=== PATIENT | male | born 2000 | race Hispanic/Latino ===

== ENCOUNTER 2018-02-09 12:15 | Emergency (ER) | payer BC, OTHER ==
[2018-02-09 14:07] LABS: Absolute Neutrophil 13.9 K/uL (1.8-8.0); Basophils % 0.1 % (0-1.3); Eosinophils % 0.1 % (0-4.4); Hematocrit 47.4 % (39.6-49.0); Lymphocytes % 6.2 % (15.3-44.8); MCH 27.1 pg (27.0-35.0); MCV 83.3 fL (80-100); MPV 8.1 fL (7.6-11.3); Monocytes % 6.2 % (3.3-12.3); RBC Red Blood Cell Count 5.69 M/uL (4.33-5.43)
[2018-02-09 14:23] LABS: Bicarbonate 31 mEq/L (21-31); Glucose Level 105 mg/dL (65-120); Potassium 3.9 mEq/L (3.6-5.0); Sodium Level 139 mEq/L (135-145)
[2018-02-09 14:25] LABS: Protime INR 0.92
[2018-02-09 14:29] LABS: ALT/SGPT 22 IU/L (10-60); AST/SGOT 25 IU/L (10-42); Albumin 5.1 g/dL (3.2-5.5); Alkaline Phosphatase 60 IU/L (42-121); BUN Blood Urea Nitrogen 10 mg/dL (6-20); Bilirubin Direct 0.2 mg/dL (0-0.2); Bilirubin Total 0.8 mg/dL (0.3-1.2); Protein, Total 7.8 g/dL (6.0-8.3)
[2018-02-09 14:31] LABS: Alcohol Serum/Plasma < 10 mg/dl; Salicylates Level < 4.0 mg/dl (<30)
[2018-02-09 15:05] LABS: Urine Blood NEGATIVE (NEG); Urine Glucose NEGATIVE (NEG); Urine Protein NEGATIVE (NEG); Urine pH 7.5 (5.0-7.0)
[2018-02-09 15:12] LABS: Barbiturates NEGATIVE; Benzodiazepines NEGATIVE; Cocaine NEGATIVE; METHAMPHETAM NEGATIVE; Opiates NEGATIVE; Phencyclidine NEGATIVE; THC Cannibis POSITIVE
[2018-02-09 15:13] LABS: Blood Morphology Comment NOT SEEN (NOT SEEN); Platelet Estimate ADEQ; Urine White Blood Cell Casts OK
[2018-02-09] MEDS ORDERED: ACETAMINOPHEN 500 MG TAB ONE (18:46)
--- NOTE | 2018-02-09 19:15 | EDPHYS ---
Physician Documentation [facility] Name: Kam Mcdnoald Age: 17 yrs Sex: Male : 2000 Arrival Date: 02/09/2018 Time: 12:22 Bed 25 Private MD: Nataliia Monahan ED Physician Santo Meza HPI: 02/09 19:09 This 17 yrs old Male presents to ER via Ambulatory with complaints of Suicidal gs Ideation. 19:09 The patient presents to the emergency department with depression, suicide ideation. gs Onset: The symptoms/episode began/occurred acutely, today. Past psychiatric history: Prior diagnosis: depression. Associated signs and symptoms: Pertinent positives; suicide ideation, Pertinent negatives: chest pain, delusions, hallucinations. Severity of symptoms: At their worst the symptoms were severe in the emergency department the symptoms are unchanged. The patient has experienced similar episodes in the past, a few times. Historical: - Allergies: 12:55 Keflex; hj - Home Meds: 12:55 None [Active]; hj - PMHx: 12:55 Depression; hj - PSHx: 12:55 Ear Tubes; hj - Immunization history:: Adult Immunizations up to date. - Social history:: Smoking status: Patient uses street drugs, marijuana. ROS: 19:09 All other systems are negative. gs Exam: 19:09 Head/Face: Normocephalic, atraumatic. Eyes: Pupils equal round and reactive to light, gs extra-ocular motions intact. Lids and lashes normal. Conjunctiva and sclera are non-icteric and not injected. Cornea within normal limits. Periorbital areas with no swelling, redness, or edema. ENT: Nares patent. No nasal discharge, no septal abnormalities noted. Tympanic membranes are normal and external auditory canals are clear. Oropharynx with no redness, swelling, or masses, exudates, or evidence of obstruction, uvula midline. Mucous membranes moist. Neck: Trachea midline, no thyromegaly or masses palpated, and no cervical lymphadenopathy. Supple, full range of motion without nuchal rigidity, or vertebral point tenderness. No Meningismus. Chest/axilla: Normal chest wall appearance and motion. Nontender with no deformity. No lesions are appreciated. Cardiovascular: Regular rate and rhythm with a normal S1 and S2. No gallops, murmurs, or rubs. Normal PMI, no JVD. No pulse deficits. Respiratory: Lungs have equal breath sounds bilaterally, clear to auscultation and percussion. No rales, rhonchi or wheezes noted. No increased work of breathing, no retractions or nasal flaring. Abdomen/GI: Soft, non-tender, with normal bowel sounds. No distension or tympany. No guarding or rebound. No evidence of tenderness throughout. Back: No spinal tenderness. No costovertebral tenderness. Full range of motion. Skin: Warm, dry with normal turgor. Normal color with no rashes, no lesions, and no evidence of cellulitis. MS/ Extremity: Pulses equal, no cyanosis. Neurovascular intact. Full, normal range of motion. Neuro: Awake and alert, GCS 15, oriented to person, place, time, and situation. Cranial nerves II-XII grossly intact. Motor strength 5/5 in all extremities. Sensory grossly intact. Cerebellar exam normal. Normal gait. 19:09 Constitutional: The patient appears alert, awake. 19:09 ECG was reviewed by the Attending Physician. 19:09 Psych: Behavior/mood is suicidal, depressed, Oriented to person, place, time, Patient having thoughts of suicide. Plan for suicide is gun or pills has a gun Judgement / Insight is impaired. Delusions/hallucinations are not present. Vital Signs: 12:55 BP 126 / 87; Pulse 70; Resp 18; Temp 99.4(TE); Pulse Ox 100% on R/A; Weight 63.5 kg; hj Height 5 ft. 6 in. (167.64 cm); Pain 0/10; 17:00 BP 127 / 76; Pulse 88; Resp 16; Pulse Ox 100% on R/A; aj1 22:02 BP 131 / 80; Pulse 74; Resp 16; Pulse Ox 99% on R/A; aj1 02/10 00:36 BP 117 / 84; Pulse 69; Resp 16; Pulse Ox 100% ; tl3 01:56 BP 131 / 83; Pulse 78; Resp 18 S; Temp 98.9(O); Pulse Ox 99% ; bb 02/09 12:55 Body Mass Index 22.60 (63.50 kg, 167.64 cm) hj MDM: 02/09 13:37 Patient medically screened. gs 19:09 Differential diagnosis: acute psychotic break, depression, psychosis secondary to gs non-compliance. Data reviewed: vital signs, nurses notes. Response to treatment: There is no appreciated change of the patient's symptoms at this time, and as a result, I will have psych eval and transfer. 02/10 01:25 ED course: I had a long discussion with patient and mother. Patient when he first jr8 arrived stated that he was very upset and been having a very bad time. Admitted to being suicidal but never gave plan. It was documented that patient wanted to cut himself. Patient stated that he use to cut to relieve pain but no longer does that. Does not actually want to stab himself to kill himself. Family has good f/u with his already established psychologist. Is going to still see [facility] as well to be put on medications. Both mother and father are taking off tomorrow to continue to be with him and to set appointments up for him. Patient has plan to always call his mom and dad just as he did today if he started to feel bad. I feel that at this time patient has a good support system. Will be staying with mom and dad for the future. And has proper already established f/u. Will discharge home to f/u. Both patient and family know to immediately come back if he is worse . 02/09 13:38 Order name: Acetaminophen; Complete Time: 18: 02/09 13:38 Order name: Basic Metabolic Panel; Complete Time: 18: 02/09 13:38 Order name: CBC with Diff; Complete Time: 18: 02/09 13:38 Order name: ETOH Level; Complete Time: 18: 02/09 13:38 Order name: Hepatic Function; Complete Time: 18: 02/09 13:38 Order name: PT-INR; Complete Time: 18: 02/09 13:38 Order name: Salicylate; Complete Time: 18: 02/09 13:38 Order name: Urine Drug Screen; Complete Time: 18: 02/09 14:16 Order name: CBC Smear Scan; Complete Time: 18:06 EDMS 02/09 14:17 Order name: Urine Dipstick--Ancillary (enter results); Complete Time: 18:06 ag 02/09 22:30 Order name: CBC with Diff rg2 02/09 22:30 Order name: CBC with Automated Diff; Complete Time: 00:02 EDOH 02/09 13:38 Order name: EKG; Complete Time: 13:39 02/09 13:38 Order name: EKG - Nurse/Tech; Complete Time: 14:53 02/09 13:38 Order name: IV Saline Lock; Complete Time: 14:01 02/09 13:38 Order name: Labs collected and sent; Complete Time: 14:01 02/09 13:38 Order name: Urine Dipstick-Ancillary (obtain specimen); Complete Time: 14:01 EC/08 19:09 Rate is 69 beats/min. Rhythm is regular. MN interval is normal. QRS interval is normal. gs T waves are Normal. No ST changes noted. Clinical impression: Normal ECG. Interpreted by me. Administered Medications: 18:49 Drug: Tylenol 1000 mg Route: PO; aj1 20:47 Follow up: Response: No adverse reaction aj1 21:26 Drug: NS 0.9% 1000 ml Route: IV; Rate: 1 bolus; Site: right antecubital; aj1 22:35 Follow up: IV Status: Completed infusion; IV Intake: 1000ml tl3 22:36 Drug: Zofran 4 mg Route: IVP; Infused Over: 2 mins; Site: right antecubital; tl3 02/10 00:37 Follow up: Response: No adverse reaction; Nausea is decreased tl3 Disposition: 02/10/18 01:33 Discharged to Home. Impression: Major depressive disorder, recurrent, Suicidal ideations. - Condition is Stable. - Discharge Instructions: Depression, Adult, Helping Someone Who is Suicidal. - Medication Reconciliation Form, Thank You Letter, Antibiotic Education, Prescription Opioid Use form. - Follow up: Private Physician; When: Tomorrow; Reason: Recheck today's complaints, Continuance of care, Re-evaluation by your physician. - Problem is new. - Symptoms have improved. Addendum: 02/25/2018 21:53 Co-signature as Attending Physician, Santo Meza MD. g s Signatures: Dispatcher [facility] Usha Washington RN RN aj1 Monique Marquez RN RN bb Barrett Bird PA PA jr8 Rg Mahoney RN RN Meza, Santo, Jennifer Alamo MD, RN RN tl3 Corrections: (The following items were deleted from the chart) 02/10 01:32 02/09 19:14 02/09/2018 19:14 Transfer ordered to Psych Facility. Diagnosis is Suicidal jr8 ideations. Reason for transfer: Higher level of care. Accepting physician is tbd. Condition is Stable. Problem is new. Symptoms are unchanged. 02/10 01:59 01:33 02/10/2018 01:33 Discharged to Home. Impression: Major depressive disorder, bb recurrent; Suicidal ideations. Condition is Stable. Forms are Medication Reconciliation Form, Thank You Letter, Antibiotic Education, Prescription Opioid Use. Follow up: Private Physician; When: Tomorrow; Reason: Recheck today's complaints, Continuance of care, Re-evaluation by your physician. Problem is new. Symptoms have improved. jr8
--- NOTE | 2018-02-09 19:15 | ER ---
Nurse's Notes [facility] Name: Kam Mcdonald Age: 17 yrs Sex: Male : 2000 Arrival Date: 02/09/2018 Time: 12:22 Bed 25 Private MD: Nataliia Monahan Diagnosis: Major depressive disorder, recurrent;Suicidal ideations Presentation: 02/09 12:52 Presenting complaint: Patient states: "i wanted to kill myself for days now" i wan to cut my self with a knife; hx of depression; reports using marijuana;. Transition of care: patient was not received from another setting of care. Onset of symptoms was February 09, 2018. Initial Sepsis Screen: Does the patient meet any 2 criteria? No. Patient's initial sepsis screen is negative. Does the patient have a suspected source of infection? No. Patient's initial sepsis screen is negative. Care prior to arrival: None. 12:52 Method Of Arrival: Ambulatory 12:52 Acuity: ERNESTINA 2 hj Triage Assessment: 12:55 General: Appears in no apparent distress. uncomfortable, Behavior is calm, cooperative, hj appropriate for age. Pain: Denies pain. Historical: - Allergies: 12:55 Keflex; hj - Home Meds: 12:55 None [Active]; hj - PMHx: 12:55 Depression; hj - PSHx: 12:55 Ear Tubes; hj - Immunization history:: Adult Immunizations up to date. - Social history:: Smoking status: Patient uses street drugs, marijuana. Screenin:27 Abuse screen: Denies threats or abuse. Denies injuries from another. Nutritional aj1 screening: No deficits noted. Tuberculosis screening: No symptoms or risk factors identified. 22:38 Fall Risk None identified. tl3 Assessment: 13:27 General: Appears in no apparent distress. comfortable, Behavior is cooperative, flat. aj1 Pain: Denies pain. Neuro: Level of Consciousness is awake, alert, obeys commands. Cardiovascular: Patient's skin is warm and dry. Respiratory: Airway is patent Respiratory effort is even, unlabored, Respiratory pattern is regular, symmetrical. GI: No signs and/or symptoms were reported involving the gastrointestinal system. : No signs and/or symptoms were reported regarding the genitourinary system. EENT: No signs and/or symptoms were reported regarding the EENT system. Derm: No signs and/or symptoms reported regarding the dermatologic system. Skin is pink, warm \\T\\ dry. normal. Musculoskeletal: No signs and/or symptoms reported regarding the musculoskeletal system. Circulation, motion, and sensation intact. 14:30 Reassessment: Patient appears in no apparent distress at this time. No changes from [facility] previously documented assessment. Patient and/or family updated on plan of care and expected duration. Pain level reassessed. Patient is alert, oriented x 3, equal unlabored respirations, skin warm/dry/pink. 15:20 Reassessment: [facility] notified of need for patient screening. 16:05 Reassessment: Patient appears in no apparent distress at this time. No changes from 1 previously documented assessment. Patient and/or family updated on plan of care and expected duration. Pain level reassessed. Patient is alert, oriented x 3, equal unlabored respirations, skin warm/dry/pink. 17:05 Reassessment: Patient appears in no apparent distress at this time. No changes from aj1 previously documented assessment. Patient and/or family updated on plan of care and expected duration. Pain level reassessed. Patient is alert, oriented x 3, equal unlabored respirations, skin warm/dry/pink. 18:00 Reassessment: Patient appears in no apparent distress at this time. No changes from aj1 previously documented assessment. Patient and/or family updated on plan of care and expected duration. Pain level reassessed. Patient is alert, oriented x 3, equal unlabored respirations, skin warm/dry/pink. 18:45 Reassessment: Patient states that he has a headache from how much he has cried today. [facility] Notified Dr. Meza, order received. 19:10 Reassessment: Patient appears in no apparent distress at this time. No changes from 1 previously documented assessment. Patient and/or family updated on plan of care and expected duration. Pain level reassessed. Patient is alert, oriented x 3, equal unlabored respirations, skin warm/dry/pink. 20:15 Reassessment: Patient appears in no apparent distress at this time. No changes from 1 previously documented assessment. Patient and/or family updated on plan of care and expected duration. Pain level reassessed. Patient is alert, oriented x 3, equal unlabored respirations, skin warm/dry/pink. 20:46 Reassessment: Patient states that his headache has improved since administration of aj1 Tylenol. 21:47 Reassessment: Patient appears in no apparent distress at this time. No changes from aj1 previously documented assessment. Patient and/or family updated on plan of care and expected duration. Pain level reassessed. Patient is alert, oriented x 3, equal unlabored respirations, skin warm/dry/pink. 22:38 Reassessment: Patient appears in no apparent distress at this time. Patient and/or tl3 family updated on plan of care and expected duration. Pain level reassessed. Patient is alert, oriented x 3, equal unlabored respirations, skin warm/dry/pink. pt trying to sleep, c/o nausea informed zofran administered, 23 g butterfly used to obtain blood for repeat CBC. 02/10 00:26 Reassessment: No changes from previously documented assessment. Patient and/or family tl3 updated on plan of care and expected duration. Pain level reassessed. Patient is alert, oriented x 3, equal unlabored respirations, skin warm/dry/pink. pt wants to go home, states that [facility] told him it was his decision to go to inpatient or do follow up outpatient care. Barrett notified, [facility] called for verification, awaiting response. Pt updated on status. 01:04 Reassessment: pt report given to TYSON Barron at [facility], Barrett at [facility] bedside discussing POC with pt and family. 01:55 Reassessment: Patient is alert, oriented x 3, equal unlabored respirations, skin bb warm/dry/pink. pt verbalized understanding of and agrees to plan of care discharge instructions given pt ambulated with steady gait to exit accompanied by family. Patient states feeling better. Psych: 02/09 13:09 Subjective: Patient's mood is sad, Delusions are denied, Hallucinations are denied aj Having thoughts of suicide. Plan for suicide is cutting self with knives. Objective: Patient is cooperative, using poor eye contact, Speech is normal, Affect is flat. Interventions: Removed personal items and placed in bag. Patient placed in hospital gown. Suicide Risk Assessment: Sad Person Scale: Sex of patient: Male: Score 1 point. Age of patient: Score 1 point if patient 15-34. Depression: Score 1 point if signs of depression are present. Previous Attempt: Score 0 point if patient has not previously attempted suicide. Substance Abuse: Score 1 point if patient abuses alcohol or drugs. Rational Thinking: Score 0 point if patient has rational thinking. Social Support: Score 0 if social support is present/available. Organized Plan: Score 1 point if patient had a plan in place. Relationship: Score 1 point if patient is , , , or for a single male Chronic Sickness: Score 0 point if patient does not have a chronic illness, debilitating, or severe disorder. TOTAL POINTS: If total points are 3-4, proposed clinical action is close follow-up/consider hospitalization. Safety Checks: Personal items have been removed. Door is open. Visitors are present. Patient uses marijuana. 02/10 01:57 Commitment: pt discharged accompanied by family. bb Vital Signs: 02/09 12:55 BP 126 / 87; Pulse 70; Resp 18; Temp 99.4(TE); Pulse Ox 100% on R/A; Weight 63.5 kg; Height 5 ft. 6 in. (167.64 cm); Pain 0/10; 17:00 BP 127 / 76; Pulse 88; Resp 16; Pulse Ox 100% on R/A; aj1 22:02 BP 131 / 80; Pulse 74; Resp 16; Pulse Ox 99% on R/A; aj1 02/10 00:36 BP 117 / 84; Pulse 69; Resp 16; Pulse Ox 100% ; tl3 01:56 BP 131 / 83; Pulse 78; Resp 18 S; Temp 98.9(O); Pulse Ox 99% ; bb 02/09 12:55 Body Mass Index 22.60 (63.50 kg, 167.64 cm) ED Course: 02/09 12:22 Patient arrived in ED. mr 12:22 Nataliia Monahan MD is Private Physician. mr 12:54 Triage completed. hj 12:55 Arm band placed on right wrist. 12:58 Santo Meza MD is Attending Physician. 12:59 Usha Washington RN is Primary Nurse. aj1 13:00 Safety Checks: Personal items have been removed The door is open or patient has been aj1 placed in a hallway bed/chair. A family member and/or friend is present and encouraged to stay. 13:15 Safety Checks: Personal items have been removed The door is open or patient has been aj1 placed in a hallway bed/chair. A family member and/or friend is present and encouraged to stay. 13:27 Patient has correct armband on for positive identification. Bed in low position. Call aj1 light in reach. Side rails up X 1. 13:27 No provider procedures requiring assistance completed. aj1 13:30 Safety Checks: Personal items have been removed The door is open or patient has been aj1 placed in a hallway bed/chair. A family member and/or friend is present and encouraged to stay. 13:45 Safety Checks: Personal items have been removed The door is open or patient has been aj1 placed in a hallway bed/chair. A family member and/or friend is present and encouraged to stay. 13:59 Inserted saline lock: 20 gauge in right antecubital area, using aseptic technique. aj1 14:00 Safety Checks: Personal items have been removed The door is open or patient has been aj1 placed in a hallway bed/chair. A family member and/or friend is present and encouraged to stay. 14:00 Initial lab(s) drawn, by ED staff, sent to lab. aj1 14:15 Safety Checks: Personal items have been removed The door is open or patient has been aj1 placed in a hallway bed/chair. A family member and/or friend is present and encouraged to stay. 14:30 Safety Checks: Personal items have been removed The door is open or patient has been aj1 placed in a hallway bed/chair. A family member and/or friend is present and encouraged to stay. 14:45 Safety Checks: Personal items have been removed The door is open or patient has been aj1 placed in a hallway bed/chair. A family member and/or friend is present and encouraged to stay. 15:00 Safety Checks: Personal items have been removed The door is open or patient has been aj1 placed in a hallway bed/chair. A family member and/or friend is present and encouraged to stay. 15:15 Safety Checks: Personal items have been removed The door is open or patient has been aj1 placed in a hallway bed/chair. A family member and/or friend is present and encouraged to stay. 15:30 Safety Checks: Personal items have been removed The door is open or patient has been aj1 placed in a hallway bed/chair. A family member and/or friend is present and encouraged to stay. 15:45 Safety Checks: Personal items have been removed The door is open or patient has been aj1 placed in a hallway bed/chair. A family member and/or friend is present and encouraged to stay. 16:00 Safety Checks: Personal items have been removed The door is open or patient has been aj1 placed in a hallway bed/chair. A family member and/or friend is present and encouraged to stay. 16:15 Safety Checks: Personal items have been removed The door is open or patient has been aj1 placed in a hallway bed/chair. A family member and/or friend is present and encouraged to stay. 16:30 Safety Checks: Personal items have been removed The door is open or patient has been aj1 placed in a hallway bed/chair. A family member and/or friend is present and encouraged to stay. 16:45 Safety Checks: Personal items have been removed The door is open or patient has been aj1 placed in a hallway bed/chair. A family member and/or friend is present and encouraged to stay. 17:00 Safety Checks: Personal items have been removed The door is open or patient has been aj1 placed in a hallway bed/chair. A family member and/or friend is present and encouraged to stay. 17:15 Safety Checks: Personal items have been removed The door is open or patient has been aj1 placed in a hallway bed/chair. A family member and/or friend is present and encouraged to stay. 17:30 Safety Checks: Personal items have been removed The door is open or patient has been aj1 placed in a hallway bed/chair. A family member and/or friend is present and encouraged to stay. 17:45 Safety Checks: Personal items have been removed The door is open or patient has been aj1 placed in a hallway bed/chair. A family member and/or friend is present and encouraged to stay. 18:00 Safety Checks: Personal items have been removed The door is open or patient has been aj1 placed in a hallway bed/chair. A family member and/or friend is present and encouraged to stay. 18:15 Safety Checks: Personal items have been removed The door is open or patient has been aj1 placed in a hallway bed/chair. A family member and/or friend is present and encouraged to stay. 18:30 Safety Checks: Personal items have been removed The door is open or patient has been aj1 placed in a hallway bed/chair. A family member and/or friend is present and encouraged to stay. 18:45 Safety Checks: Personal items have been removed The door is open or patient has been aj1 placed in a hallway bed/chair. A family member and/or friend is present and encouraged to stay. 19:00 Safety Checks: Personal items have been removed The door is open or patient has been aj1 placed in a hallway bed/chair. A family member and/or friend is present and encouraged to stay. 19:15 Safety Checks: Personal items have been removed The door is open or patient has been aj1 placed in a hallway bed/chair. A family member and/or friend is present and encouraged to stay. 19:30 Safety Checks: Personal items have been removed The door is open or patient has been aj1 placed in a hallway bed/chair. A family member and/or friend is present and encouraged to stay. 19:45 Safety Checks: Personal items have been removed The door is open or patient has been aj1 placed in a hallway bed/chair. A family member and/or friend is present and encouraged to stay. 20:00 Safety Checks: Personal items have been removed The door is open or patient has been aj1 placed in a hallway bed/chair. A family member and/or friend is present and encouraged to stay. 20:15 Safety Checks: Personal items have been removed The door is open or patient has been aj1 placed in a hallway bed/chair. A family member and/or friend is present and encouraged to stay. 20:30 Safety Checks: Personal items have been removed The door is open or patient has been aj1 placed in a hallway bed/chair. A family member and/or friend is present and encouraged to stay. 20:45 Safety Checks: Personal items have been removed The door is open or patient has been aj1 placed in a hallway bed/chair. A family member and/or friend is present and encouraged to stay. 21:00 Safety Checks: Personal items have been removed The door is open or patient has been aj1 placed in a hallway bed/chair. A family member and/or friend is present and encouraged to stay. 21:15 Safety Checks: Personal items have been removed The door is open or patient has been aj1 placed in a hallway bed/chair. A family member and/or friend is present and encouraged to stay. 21:30 Safety Checks: Personal items have been removed The door is open or patient has been aj1 placed in a hallway bed/chair. A family member and/or friend is present and encouraged to stay. 21:45 Safety Checks: Personal items have been removed The door is open or patient has been aj1 placed in a hallway bed/chair. A family member and/or friend is present and encouraged to stay. 22:00 Safety Checks: Personal items have been removed The door is open or patient has been aj1 placed in a hallway bed/chair. A family member and/or friend is present and encouraged to stay. 22:15 Safety Checks: Personal items have been removed The door is open or patient has been tl3 placed in a hallway bed/chair. A family member and/or friend is present and encouraged to stay. 22:30 Safety Checks: Personal items have been removed The door is open or patient has been tl3 placed in a hallway bed/chair. A family member and/or friend is present and encouraged to stay. 22:45 Safety Checks: Personal items have been removed The door is open or patient has been tl3 placed in a hallway bed/chair. A family member and/or friend is present and encouraged to stay. 23:00 Safety Checks: Personal items have been removed The door is open or patient has been tl3 placed in a hallway bed/chair. A family member and/or friend is present and encouraged to stay. 23:00 Safety checks: Items removed: yes. Door open/sign placed on door: yes. Family/friend aa8 present: yes. 23:15 Safety Checks: Personal items have been removed The door is open or patient has been tl3 placed in a hallway bed/chair. A family member and/or friend is present and encouraged to stay mom at bedside. 23:15 Safety checks: Items removed: yes. Door open/sign placed on door: yes. Family/friend aa8 present: yes. 23:30 Safety Checks: Personal items have been removed The door is open or patient has been tl3 placed in a hallway bed/chair. A family member and/or friend is present and encouraged to stay. 23:30 Safety checks: Items removed: yes. Door open/sign placed on door: yes. Family/friend aa8 present: yes. 23:45 Safety Checks: Personal items have been removed The door is open or patient has been tl3 placed in a hallway bed/chair. A family member and/or friend is present and encouraged to stay. 23:45 Safety checks: Items removed: yes. Door open/sign placed on door: yes. Family/friend aa8 present: yes. 23:45 Safety checks: Items removed: yes. Door open/sign placed on door: yes. Family/friend aa8 present: Other: NURSE WAS IN THE TALKING TO PT,WHEN PT ASK FOR DISCHARGE. 02/10 00:00 Safety Checks: Personal items have been removed The door is open or patient has been tl3 placed in a hallway bed/chair. A family member and/or friend is present and encouraged to stay. 00:00 Safety checks: Items removed: Door open/sign placed on door: yes. Family/friend aa8 present: yes. 00:15 Safety Checks: Personal items have been removed The door is open or patient has been tl3 placed in a hallway bed/chair. A family member and/or friend is present and encouraged to stay. 00:15 Safety checks: Items removed: yes. Door open/sign placed on door: yes. Family/friend aa8 present: yes. 00:30 Safety Checks: Personal items have been removed The door is open or patient has been tl3 placed in a hallway bed/chair. A family member and/or friend is present and encouraged to stay. 00:30 Safety checks: Items removed: yes. Door open/sign placed on door: no. Family/friend aa8 present: yes. 00:38 CBC with Diff Sent. tl3 00:45 Safety checks: Items removed: yes. Door open/sign placed on door: yes. Family/friend aa8 present: yes. 01:00 Safety checks: Items removed: yes. Door open/sign placed on door: yes. Family/friend aa8 present: yes. 01:15 Safety checks: Items removed: yes. Door open/sign placed on door: yes. Family/friend aa8 present:. 01:25 Barrett Bird PA is PHCP. jr8 01:30 Safety checks: Items removed: yes. Door open/sign placed on door: yes. Family/friend aa8 present: yes. 01:45 Safety checks: Items removed: yes. Door open/sign placed on door: yes. Family/friend aa8 present: no. 01:58 pt was D/Cd earlier, pressure bandage in place, clean and dry. bb Administered Medications: 02/09 18:49 Drug: Tylenol 1000 mg Route: PO; aj1 20:47 Follow up: Response: No adverse reaction aj1 21:26 Drug: NS 0.9% 1000 ml Route: IV; Rate: 1 bolus; Site: right antecubital; aj1 22:35 Follow up: IV Status: Completed infusion; IV Intake: 1000ml tl3 22:36 Drug: Zofran 4 mg Route: IVP; Infused Over: 2 mins; Site: right antecubital; tl3 02/10 00:37 Follow up: Response: No adverse reaction; Nausea is decreased tl3 Intake: 02/09 22:35 IV: 1000ml; Total: 1000ml. tl3 Outcome: 19:14 ER care complete, transfer ordered by . 02/10 01:33 Discharge ordered by . jeremiah 01:58 Discharged to home ambulatory, with family. bb 01:58 Condition: improved 01:58 Discharge instructions given to patient, family, Instructed on discharge instructions, follow up and referral plans. Demonstrated understanding of instructions, follow-up care. 01:59 Patient left the ED. bb Signatures: Usha Washington, RN RN Gayle Cannon mr Monique Marquez RN RN bb Michelle Yoo RN TYSON Barrett Bird PA PA jr8 Rg Mahoney RN RN hj Adeola, Adeola aa8 Starr, Gregory, MD MD Jennifer Silva RN RN tl3 Corrections: (The following items were deleted from the chart) 02/09 12:57 12:55 Pulse 70bpm; Resp 18bpm; Pulse Ox 100% RA; Temp 99.4F Temporal; 63.5 kg; Height 5 hj ft. 6 in.; BMI: 22.6; Pain 0/10; hj 02/10 01:47 01:46 Safety checks: Items removed: yes. Door open/sign placed on door: yes. aa8 Family/friend present: yes. aa8 02:23 01:32 Safety checks: Items removed: yes. Door open/sign placed on door: yes. aaAntonette Family/friend present: yes. aa8 01:44 Safety checks: Items removed: yes. Door open/sign placed on door: yes. aa8 Family/friend present: aa8 02:11 Safety checks: Items removed: yes. Door open/sign placed on door: yes. aa8 Family/friend present: yes. aa8
[2018-02-09] MEDS ORDERED: NA CHLORIDE 0.9% 1,000 ML ONE (21:17)
[2018-02-09] MEDS ORDERED: ONDANSETRON 4 MG/2 ML VIAL ONE (22:27)
[2018-02-09 22:45] LABS: Absolute Lymphocytes (CBC) 1.7 K/uL (0.7-4.9); Absolute Monocytes 0.9 K/uL (0.1-1.3); Absolute Neutrophil 8.9 K/uL (1.8-8.0); Basophils % 0.4 % (0-1.3); Eosinophils % 0.4 % (0-4.4); Hematocrit 44.3 % (39.6-49.0); Lymphocytes % 14.9 % (15.3-44.8); MCH 27.2 pg (27.0-35.0); MCV 83.3 fL (80-100); MPV 8.2 fL (7.6-11.3); Monocytes % 7.6 % (3.3-12.3); RBC Red Blood Cell Count 5.31 M/uL (4.33-5.43)
[2018-02-10 02:10] VITALS: BP 131/83; TEMP 98.9; O2SAT 99
--- NOTE | 2018-02-10 06:58 | EKG ---
Test Date: 2018-02-09 Test Time: 14:40:37 [employer] Supervisor: HAI MEASUREMENT RESULTS: Intervals: Rate: 69 MI: 148 QRSD: 86 QT: 378 QTc: 405 [place]: P: 35 MI: 148 QRS: 88 T: 60 INTERPRETIVE STATEMENTS: Sinus rhythm with marked sinus arrhythmia Otherwise normal ECG Compared to ECG 03/29/2014 19:52:21 No significant changes Electronically Signed On 02-10-18 06:58:06 CDT by Martínez Yang
== END 2018-02-10 01:59 | disposition home or self-care (01) ==
LOC: ER 12:15
DX: F33.9 Major depressive disorder, recurrent, unspecified (principal); Z88.1 Allergy status to other antibiotic agents
CPT/HCPCS: 36415; 80048; 80076; 80307; 80320; 80329; 81003; 85025; 85610; 93005; 96361; 96374; 99284; J2405; J7030

== ENCOUNTER 2019-05-08 03:32 | Emergency (ER) | payer BC ==
[2019-05-08 04:24] LABS: Absolute Lymphocytes (CBC) 2.3 K/uL (0.7-4.9); Basophils % 0.4 % (0-1.3); Hematocrit 47.4 % (39.6-49.0); Lymphocytes % 43.5 % (15.3-44.8); MPV 8.1 fL (7.6-11.3); RBC Red Blood Cell Count 5.68 M/uL (4.33-5.43)
[2019-05-08 04:26] LABS: Protime INR 0.9
[2019-05-08 04:31] LABS: Barbiturates NEGATIVE (NEGATIVE); Benzodiazepines POSITIVE (NEGATIVE); Cocaine NEGATIVE (NEGATIVE); METHAMPHETAM NEGATIVE (NEGATIVE); Methadone NEGATIVE (NEGATIVE); Opiates NEGATIVE (NEGATIVE); Phencyclidine NEGATIVE (NEGATIVE); THC Cannibis NEGATIVE (NEGATIVE)
--- NOTE | 2019-05-08 04:47 | EDPHYS ---
Physician Documentation [facility] Name: Kam Mcdonald Age: 19 yrs Sex: Male : 2000 Arrival Date: 05/08/2019 Time: 03:35 Bed 7 Private MD: ED Physician Kosta Fierro HPI: 05/08 04:43 This 19 yrs old Male presents to ER via Ambulatory with complaints of Suicidal donald Ideation. 04:43 The patient presents to the emergency department with anxiety, depression, suicide donald ideation. Onset: The symptoms/episode began/occurred gradually, today. Past psychiatric history: Prior diagnosis: depression. Associated signs and symptoms: Pertinent positives; anxiety, depression, suicide ideation. Severity of symptoms: At their worst the symptoms were moderate in the emergency department the symptoms are worse markedly. The patient has experienced similar episodes in the past, multiple times. Historical: - Allergies: 04:07 Keflex; lp1 - Home Meds: 04:07 Trintellix oral oral [Active]; lp1 - PMHx: 04:07 Anxiety; Depression; lp1 - PSHx: 04:07 foot surgery; Ear Tubes; lp1 - Immunization history:: Adult Immunizations up to date. - Social history:: Smoking status: Patient/guardian denies using tobacco. - Ebola Screening: : No symptoms or risks identified at this time. - Family history:: not pertinent. ROS: 04:43 Constitutional: Negative for fever, chills, and weight loss, Eyes: Negative for injury, donald pain, redness, and discharge, ENT: Negative for injury, pain, and discharge, Neck: Negative for injury, pain, and swelling, Cardiovascular: Negative for chest pain, palpitations, and edema, Respiratory: Negative for shortness of breath, cough, wheezing, and pleuritic chest pain, Abdomen/GI: Negative for abdominal pain, nausea, vomiting, diarrhea, and constipation, Back: Negative for injury and pain, : Negative for injury, bleeding, discharge, and swelling, MS/Extremity: Negative for injury and deformity, Skin: Negative for injury, rash, and discoloration, Neuro: Negative for headache, weakness, numbness, tingling, and seizure, Psych: Negative for depression, anxiety, suicide ideation, homicidal ideation, and hallucinations, Allergy/Immunology: Negative for hives, rash, and allergies, Hematologic/Lymphatic: Negative for swollen nodes, abnormal bleeding, and unusual bruising. Exam: 04:43 Constitutional: This is a well developed, well nourished patient who is awake, alert, donald and in no acute distress. Head/Face: Normocephalic, atraumatic. Eyes: Pupils equal round and reactive to light, extra-ocular motions intact. Lids and lashes normal. Conjunctiva and sclera are non-icteric and not injected. Cornea within normal limits. Periorbital areas with no swelling, redness, or edema. ENT: Nares patent. No nasal discharge, no septal abnormalities noted. Tympanic membranes are normal and external auditory canals are clear. Oropharynx with no redness, swelling, or masses, exudates, or evidence of obstruction, uvula midline. Mucous membranes moist. Neck: Trachea midline, no thyromegaly or masses palpated, and no cervical lymphadenopathy. Supple, full range of motion without nuchal rigidity, or vertebral point tenderness. No Meningismus. Chest/axilla: Normal chest wall appearance and motion. Nontender with no deformity. No lesions are appreciated. Cardiovascular: Regular rate and rhythm with a normal S1 and S2. No gallops, murmurs, or rubs. Normal PMI, no JVD. No pulse deficits. Respiratory: Lungs have equal breath sounds bilaterally, clear to auscultation and percussion. No rales, rhonchi or wheezes noted. No increased work of breathing, no retractions or nasal flaring. Abdomen/GI: Soft, non-tender, with normal bowel sounds. No distension or tympany. No guarding or rebound. No evidence of tenderness throughout. Back: No spinal tenderness. No costovertebral tenderness. Full range of motion. Male : Normal genitalia with no discharge or lesions. Skin: Warm, dry with normal turgor. Normal color with no rashes, no lesions, and no evidence of cellulitis. MS/ Extremity: Pulses equal, no cyanosis. Neurovascular intact. Full, normal range of motion. Neuro: Awake and alert, GCS 15, oriented to person, place, time, and situation. Cranial nerves II-XII grossly intact. Motor strength 5/5 in all extremities. Sensory grossly intact. Cerebellar exam normal. Normal gait. 04:43 Psych: Behavior/mood is pleasant, cooperative, Affect is calm, Oriented to person, place, time, Patient has no thoughts/intents to harm self or others. Judgement / Insight is normal. Memory is normal. Delusions/hallucinations are not present. Vital Signs: 04:05 BP 143 / 104; Pulse 112; Resp 16; Temp 98.5(O); Pulse Ox 97% on R/A; Weight 63.5 kg; lp1 Height 5 ft. 6 in. (167.64 cm); Pain 0/10; 05:00 BP 133 / 100; lp1 06:31 BP 131 / 87; Pulse 87; Resp 16; Pulse Ox 97% on R/A; lp1 10:29 BP 128 / 83; Pulse 78; Resp 16; Pulse Ox 98% on R/A; dh3 14:12 BP 132 / 96; Pulse 82; Resp 18; Pulse Ox 98% on R/A; dh3 04:05 Body Mass Index 22.60 (63.50 kg, 167.64 cm) lp1 MDM: 03:58 Patient medically screened. [facility] 08:30 Data reviewed: Pt admits to planning to hanging himself from the rafters last pm. snw States he feels better this am but is fearful he will hurt himself if he goes home. Willing to be transferred to psych facility for help.. 13:19 Physician consultation: Dr Cantor was called at 13:20, was contacted at 13:20, snw regarding regarding transfer, to a psychiatric hospital. 05/08 03:56 Order name: Acetaminophen; Complete Time: 05:28 05/08 03:56 Order name: Basic Metabolic Panel; Complete Time: 05:28 05/08 03:56 Order name: CBC with Diff; Complete Time: 04:43 05/08 03:56 Order name: ETOH Level; Complete Time: 05:28 05/08 03:56 Order name: Hepatic Function; Complete Time: 05:28 05/08 03:56 Order name: PT-INR; Complete Time: 04:43 05/08 03:56 Order name: Ptt, Activated; Complete Time: 04:43 05/08 03:56 Order name: Salicylate; Complete Time: 05:28 05/08 03:56 Order name: Urine Drug Screen; Complete Time: 04: 05/08 03:56 Order name: EKG; Complete Time: 03:57 05/08 04:22 Order name: Urine Dipstick--Ancillary (enter results); Complete Time: 05:28 ag4 05/08 07:08 Order name: Diet Regular; Complete Time: 07:09 dh3 05/08 03:56 Order name: EKG - Nurse/Tech; Complete Time: 04:07 05/08 03:56 Order name: IV Saline Lock; Complete Time: 04:07 05/08 03:56 Order name: Labs collected and sent; Complete Time: 04:07 05/08 03:56 Order name: Urine Dipstick-Ancillary (obtain specimen); Complete Time: 04:10 Administered Medications: 05:26 Drug: Tylenol 650 mg Route: PO; lp1 07:13 Follow up: Response: Pain is decreased bp 05:26 Drug: Motrin 600 mg Route: PO; lp1 07:13 Follow up: Response: Pain is decreased bp Disposition: 05/09 09:25 Co-signature as Attending Physician, Kosta Fierro MD I agree with the assessment and [facility] plan of care. Disposition: 05/08/19 04:46 Transfer ordered to Psych Facility. Diagnosis are Suicidal ideations, Major depressive disorder, recurrent. - Reason for transfer: Higher level of care. - Accepting physician is to psych. - Condition is Fair. - Problem is new. - Symptoms have improved. Signatures: Dispatcher [employer] Kosta Casillas MD MD cha Therrien, Shelly, BISCUIT PACKER-C BISCUIT PACKER-Csnw Rosario Tolentino RN RN Aranza Bolivar RN RN [facility] James Qureshi, RN RN bp Corrections: (The following items were deleted from the chart) 05/08 13:21 04:46 05/08/2019 04:46 Transfer ordered to [facility]. Diagnosis is snw Suicidal ideations; Major depressive disorder, recurrent. Reason for transfer: Higher level of care. Accepting physician is to psych. Condition is Fair. Problem is new. Symptoms have improved. [facility] 14:21 13:21 05/08/2019 04:46 Transfer ordered to Psych Facility. Diagnosis is Suicidal bp ideations; Major depressive disorder, recurrent. Reason for transfer: Higher level of care. Accepting physician is to psych. Condition is Fair. Problem is new. Symptoms have improved. snw
--- NOTE | 2019-05-08 04:47 | ER ---
Nurse's Notes [facility] Name: Kam Mcdonald Age: 19 yrs Sex: Male : 2000 Arrival Date: 05/08/2019 Time: 03:35 Bed 7 Private MD: Diagnosis: Suicidal ideations;Major depressive disorder, recurrent Presentation: 05/08 04:01 Presenting complaint: Patient states: "I just want to get some help cause I've tried lp1 doing it on my own and it's not working. I don't want to kill myself, but I don't want to get to that point."; Patient denies HI at this time. States recent stressors of moving back here from [place] away from mother and girlfriend breaking up with him; Recently began taking Trintellix about 1 week ago for hx of depression. Transition of care: patient was not received from another setting of care. Onset of symptoms was May 08, 2019. Risk Assessment: Do you want to hurt yourself or someone else? Patient reports no desire to harm self or others. Initial Sepsis Screen: Does the patient meet any 2 criteria? No. Patient's initial sepsis screen is negative. Does the patient have a suspected source of infection? No. Patient's initial sepsis screen is negative. Care prior to arrival: None. 04:01 Method Of Arrival: Ambulatory lp1 04:01 Acuity: ERNESTINA 2 lp1 Historical: - Allergies: 04:07 Keflex; lp1 - Home Meds: 04:07 Trintellix oral oral [Active]; lp1 - PMHx: 04:07 Anxiety; Depression; lp1 - PSHx: 04:07 foot surgery; Ear Tubes; lp1 - Immunization history:: Adult Immunizations up to date. - Social history:: Smoking status: Patient/guardian denies using tobacco. - Ebola Screening: : No symptoms or risks identified at this time. - Family history:: not pertinent. Screenin:17 Abuse screen: Denies threats or abuse. Denies injuries from another. Nutritional lp1 screening: No deficits noted. Tuberculosis screening: No symptoms or risk factors identified. Fall Risk None identified. Assessment: 04:16 General: Appears in no apparent distress. comfortable, Behavior is calm, cooperative. lp1 Pain: Denies pain. Neuro: Level of Consciousness is awake, alert, obeys commands, Oriented to person, place, time, situation, Gait is steady. Cardiovascular: Patient's skin is warm and dry. Respiratory: Respiratory effort is even, unlabored. GI: No signs and/or symptoms were reported involving the gastrointestinal system. : No signs and/or symptoms were reported regarding the genitourinary system. EENT: No signs and/or symptoms were reported regarding the EENT system. Derm: Skin is pink, warm \\T\\ dry. Musculoskeletal: Circulation, motion, and sensation intact. 05:20 Reassessment: Patient complaint of headache, provider notified. lp1 06:29 Reassessment: Patient appears in no apparent distress at this time. Patient is alert, lp1 oriented x 3, equal unlabored respirations, skin warm/dry/pink. General: Behavior is calm, cooperative. 07:00 Reassessment: RECD REPORT FROM LAWSON MEHTA. 19YO HM P/W SI AND PSYCH D/O. PSYCH TRANSFER bp IN PROCESS. SITTER AT B/S. 10:28 Reassessment: TRANSFER STILL PENDING COMMUNICATION WITH PSYCH FACILITIES. FAMILY AND bp SITTER AT B/S. 13:11 Reassessment: report given to Marsha at [facility]. iw 14:19 Reassessment: EMS AT B/S FOR TRANSPORT. PT JARROD. bp Psych: 04:00 Subjective: Patient's mood is sad, Delusions are denied, Hallucinations are denied lp1 Having thoughts of Patient denies SI at this time but states he "does not want to get to that point"; States he has thought of multiple plans including overdose, shooting self with gun. Objective: Patient is cooperative, Speech is normal, Affect is appropriate, Patient has mutilated themselves by Patient states "I just cut kind of all over my body"; patient showed areas of previous cutting to upper arms, chest, fingers. Interventions: Removed personal items and placed in bag. Patient placed in hospital gown. Searched person for dangerous items. Urine collected and sent for urine drug test. Belonging list filled out. Suicide Risk Assessment: Sad Person Scale: Sex of patient: Male: Score 1 point. Age of patient: Score 1 point if patient 15-34. Depression: Score 1 point if signs of depression are present. Previous Attempt: Score 0 point if patient has not previously attempted suicide. Substance Abuse: Score 0 point if patient does not abuse alcohol or drugs. Rational Thinking: Score 0 point if patient has rational thinking. Social Support: Score 0 if social support is present/available. Organized Plan: Score 1 point if patient had a plan in place. Relationship: Score 1 point if patient is , , , or for a single male Chronic Sickness: Score 0 point if patient does not have a chronic illness, debilitating, or severe disorder. TOTAL POINTS: If total points are 5-6, proposed clinical action is to strongly consider hospitalization, depending upon confidence in the follow-up arrangement. Implement suicide precautions. Safety Checks: Personal items have been removed. Door is open. Visitors are present. Pt denies substance abuse. 14:20 Commitment: Patient will be a voluntary commitment. bp Vital Signs: 04:05 BP 143 / 104; Pulse 112; Resp 16; Temp 98.5(O); Pulse Ox 97% on R/A; Weight 63.5 kg; lp1 Height 5 ft. 6 in. (167.64 cm); Pain 0/10; 05:00 BP 133 / 100; lp1 06:31 BP 131 / 87; Pulse 87; Resp 16; Pulse Ox 97% on R/A; lp1 10:29 BP 128 / 83; Pulse 78; Resp 16; Pulse Ox 98% on R/A; dh3 14:12 BP 132 / 96; Pulse 82; Resp 18; Pulse Ox 98% on R/A; dh3 04:05 Body Mass Index 22.60 (63.50 kg, 167.64 cm) lp1 ED Course: 03:35 Patient arrived in ED. ag3 03:57 Kosta Fierro MD is Attending Physician. donald 04:00 Inserted saline lock: 20 gauge in right hand, using aseptic technique. Blood collected. tl2 04:05 Triage completed. lp1 04:05 Arm band placed on left wrist. lp1 04:15 Safety checks: Items removed: yes. Door open/sign placed on door: yes. Family/friend ag4 present: yes. Sitter present: Yes. 04:17 Patient has correct armband on for positive identification. Sitter at bedside. lp1 04:30 Safety checks: Items removed: yes. Door open/sign placed on door: yes. Family/friend ag4 present: yes. Sitter present: Yes. 04:42 Lawson Bolivar TYSON is Primary Nurse. lp1 04:42 No provider procedures requiring assistance completed. lp1 04:45 Safety checks: Items removed: yes. Door open/sign placed on door: yes. Family/friend ag4 present: yes. Sitter present: Yes. 05:00 Safety checks: Items removed: yes. Door open/sign placed on door: yes. Family/friend ag4 present: yes. Sitter present: Yes. 05:15 Safety checks: Items removed: yes. Door open/sign placed on door: yes. Family/friend ar5 present: yes. Sitter present: Yes. 05:30 Safety checks: Items removed: yes. Door open/sign placed on door: yes. Family/friend ar5 present: yes. Sitter present: Yes. 05:45 Safety checks: Items removed: yes. Door open/sign placed on door: yes. Family/friend ar5 present: yes. Sitter present: Yes. 06:00 Safety checks: Items removed: yes. Door open/sign placed on door: yes. Family/friend ar5 present: yes. Sitter present: Yes. 06:15 Safety checks: Items removed: yes. Door open/sign placed on door: yes. Family/friend ar5 present: yes. Sitter present: Yes. 06:30 Safety checks: Items removed: yes. Door open/sign placed on door: yes. Family/friend ar5 present: yes. Sitter present: Yes. 06:45 Safety checks: Items removed: yes. Door open/sign placed on door: yes. Family/friend ar5 present: yes. Sitter present: Yes. 07:00 Safety checks: Items removed: yes. Door open/sign placed on door: yes. Family/friend dh3 present: yes. Family/friends encouraged to stay with patient. Sitter present: Yes. 07:15 Safety checks: Items removed: yes. Door open/sign placed on door: yes. Family/friend dh3 present: yes. Family/friends encouraged to stay with patient. Sitter present: Yes. 07:30 Safety checks: Items removed: yes. Door open/sign placed on door: yes. Family/friend dh3 present: yes. Family/friends encouraged to stay with patient. Sitter present: Yes. 07:45 Safety checks: Items removed: yes. Door open/sign placed on door: yes. Family/friend dh3 present: yes. Family/friends encouraged to stay with patient. Sitter present: Yes. 08:00 Safety checks: Items removed: yes. Door open/sign placed on door: yes. Family/friend dh3 present: yes. Family/friends encouraged to stay with patient. Sitter present: Yes. 08:08 Primary Nurse role handed off by Lawson Bolivar, TYSON bp 08:08 James Qureshi, RN is Primary Nurse. bp 08:15 Safety checks: Items removed: yes. Door open/sign placed on door: yes. Family/friend dh3 present: yes. Family/friends encouraged to stay with patient. Sitter present: Yes. 08:30 Safety checks: Items removed: yes. Door open/sign placed on door: yes. Family/friend dh3 present: yes. Family/friends encouraged to stay with patient. Sitter present: Yes. 08:33 Marija Layton FNP-C is [facility]. [facility] 08:45 Safety checks: Items removed: yes. Door open/sign placed on door: yes. Family/friend dh3 present: yes. Family/friends encouraged to stay with patient. Sitter present: Yes. 09:00 Safety checks: Items removed: yes. Door open/sign placed on door: yes. Family/friend dh3 present: yes. Family/friends encouraged to stay with patient. Sitter present: Yes. 09:15 Safety checks: Items removed: yes. Door open/sign placed on door: yes. Family/friend dh3 present: yes. Family/friends encouraged to stay with patient. Sitter present: Yes. 09:30 Safety checks: Items removed: yes. Door open/sign placed on door: yes. Family/friend dh3 present: yes. Family/friends encouraged to stay with patient. Sitter present: Yes. 09:45 Safety checks: Items removed: yes. Door open/sign placed on door: yes. Family/friend dh3 present: yes. Family/friends encouraged to stay with patient. Sitter present: Yes. 10:00 Safety checks: Items removed: yes. Door open/sign placed on door: yes. Family/friend dh3 present: yes. Family/friends encouraged to stay with patient. Sitter present: Yes. 10:15 Safety checks: Items removed: yes. Door open/sign placed on door: yes. Family/friend dh3 present: yes. Family/friends encouraged to stay with patient. Sitter present: Yes. 10:30 Safety checks: Items removed: yes. Door open/sign placed on door: yes. Family/friend dh3 present: yes. Family/friends encouraged to stay with patient. Sitter present: Yes. 10:45 Safety checks: Items removed: yes. Door open/sign placed on door: yes. Family/friend dh3 present: yes. Family/friends encouraged to stay with patient. Sitter present: Yes. 11:00 Safety checks: Items removed: yes. Door open/sign placed on door: yes. Family/friend dh3 present: yes. Family/friends encouraged to stay with patient. Sitter present: Yes. 11:15 Safety checks: Items removed: yes. Door open/sign placed on door: yes. Family/friend dh3 present: yes. Family/friends encouraged to stay with patient. Sitter present: Yes. 11:30 Safety checks: Items removed: yes. Door open/sign placed on door: yes. Family/friend dh3 present: yes. Family/friends encouraged to stay with patient. Sitter present: Yes. 11:45 Safety checks: Items removed: yes. Door open/sign placed on door: yes. Family/friend dh3 present: yes. Family/friends encouraged to stay with patient. Sitter present: Yes. 12:00 Safety checks: Items removed: yes. Door open/sign placed on door: yes. Family/friend dh3 present: yes. Family/friends encouraged to stay with patient. Sitter present: Yes. 12:15 Safety checks: Items removed: yes. Door open/sign placed on door: yes. Family/friend dh3 present: yes. Family/friends encouraged to stay with patient. Sitter present: Yes. 12:30 Safety checks: Items removed: yes. Door open/sign placed on door: yes. Family/friend dh3 present: yes. Family/friends encouraged to stay with patient. Sitter present: Yes. 12:45 Safety checks: Items removed: yes. Door open/sign placed on door: yes. Family/friend dh3 present: yes. Family/friends encouraged to stay with patient. Sitter present: Yes. 13:00 Safety checks: Items removed: yes. Door open/sign placed on door: yes. Family/friend dh3 present: yes. Family/friends encouraged to stay with patient. Sitter present: Yes. 13:15 Safety checks: Items removed: yes. Door open/sign placed on door: yes. Family/friend dh3 present: yes. Family/friends encouraged to stay with patient. Sitter present: Yes. 13:30 Safety checks: Items removed: yes. Door open/sign placed on door: yes. Family/friend dh3 present: yes. Family/friends encouraged to stay with patient. Sitter present: Yes. 13:45 Safety checks: Items removed: yes. Door open/sign placed on door: yes. Family/friend dh3 present: yes. Family/friends encouraged to stay with patient. Sitter present: Yes. 14:00 Safety checks: Items removed: yes. Door open/sign placed on door: yes. Family/friend dh3 present: yes. Family/friends encouraged to stay with patient. Sitter present: Yes. 14:15 Safety checks: Items removed: yes. Door open/sign placed on door: yes. Family/friend dh3 present: yes. Family/friends encouraged to stay with patient. Sitter present: Yes. 14:20 IV discontinued, intact, bleeding controlled, No redness/swelling at site. Pressure bp dressing applied. Administered Medications: 05:26 Drug: Tylenol 650 mg Route: PO; lp1 07:13 Follow up: Response: Pain is decreased bp 05:26 Drug: Motrin 600 mg Route: PO; lp1 07:13 Follow up: Response: Pain is decreased bp Outcome: 04:46 ER care complete, transfer ordered by MD. bennett 14:20 Transferred by ground EMS bp 14:20 Condition: stable 14:20 Instructed on the need for transfer. 14:21 Patient left the ED. bp Signatures: Kosta Fierro MD MD cha Therrien, Shelly, OFFICE MANAGER-C OFFICE MANAGER-Csnw Michelle Yoo, TYSON MEHTA iw Lawson Bolivar RN RN lp1 Anum Gan RN RN 2 Latoya Cleveland 3 James Qureshi RN RN bp Joana June ag3 Ricardo Bain ag4 Andreia Pierson ar5
[2019-05-08 04:51] LABS: ALT/SGPT 31 U/L (12-78); AST/SGOT 23 U/L (15-37); Albumin 4.3 g/dL (3.4-5.0); Alkaline Phosphatase 67 U/L (45-117); BUN Blood Urea Nitrogen 7 mg/dL (7-18); Bicarbonate 22 mmol/L (21-32); Bilirubin Direct 0.1 mg/dL (0-0.2); Bilirubin Total 0.3 mg/dL (0.2-1.0); Glucose Level 86 mg/dL (74-106); Potassium 3.9 mmol/L (3.5-5.1); Protein, Total 7.5 g/dL (6.4-8.2); Sodium Level 143 mmol/L (136-145)
[2019-05-08 05:07] LABS: Urine Blood NEGATIVE (NEG); Urine Glucose NEGATIVE (NEG); Urine Protein NEGATIVE (NEG)
[2019-05-08] MEDS ORDERED: IBUPROFEN 400 MG TAB ONE (05:22)
[2019-05-08] MEDS ORDERED: IBUPROFEN 200 MG TAB PO ONE (05:22)
[2019-05-08] MEDS ORDERED: ACETAMINOPHEN 325 MG TABLET ONE (05:22)
[2019-05-08 14:29] VITALS: TEMP 98.5
[2019-05-08 14:31] VITALS: O2SAT 98
[2019-05-08 14:33] VITALS: BP 132/96
--- NOTE | 2019-05-09 07:45 | EKG ---
Test Date: 2019-05-08 Test Time: 04:06:23 Barber Tool Sharpener: HU MEASUREMENT RESULTS: Intervals: Rate: 107 GA: 142 QRSD: 78 QT: 318 QTc: 424 Skillman: P: 60 GA: 142 QRS: 85 T: 52 INTERPRETIVE STATEMENTS: Sinus tachycardia Otherwise normal ECG Compared to ECG 02/09/2018 14:40:37 Sinus rhythm no longer present Sinus arrhythmia no longer present Electronically Signed On 05-09-19 07:43:43 CDT by Martínez Yang
== END 2019-05-08 14:21 ==
LOC: ER 03:32
DX: R45.851 Suicidal ideations (principal); F33.9 Major depressive disorder, recurrent, unspecified; F41.9 Anxiety disorder, unspecified; Z88.1 Allergy status to other antibiotic agents
CPT/HCPCS: 36415; 80048; 80076; 80307; 80320; 80329; 81003; 85025; 85610; 85730; 93005; 99285

== ENCOUNTER 2023-06-01 12:24 | Emergency (ER) | payer BC ==
--- OUTSIDE RECORDS SUMMARY | 2023-06-01 12:43 | XMS REPORT | Continuity of Care Document ---
:2000 Author Organization [facility] t Address [address] [facility] [place] [address] Care Team Providers Name Role Phone Ellen Travis Attending Clinician Unavailable MACKENZIE RDZ Attending Clinician Unavailable JENISE MOSS Attending Clinician Unavailable JULEE BATEMAN Attending Clinician Unavailable Kaitlin Traylor Attending Clinician KAITLIN TRAYLOR Attending Clinician Unavailable Kaitlin Traylor Admitting Clinician KAITLIN TRAYLOR Admitting Clinician Unavailable Payers Payer Name Policy Type Policy Number Effective Date Expiration Date S [facility] BCBS 2 [id number] 2022 00:00:00 Problems Condition Condition Condition Status Onset Resolution Last Treating Co mments Source Name Details Category Date Date Treatment Clinician Date [facility] Diagnosis Active 2023-02-02 Mem oria Active 01-30 15:13:00 l 01/30/2023 00:00: Wil TIDWELL [address] Allergies, Adverse Reactions, Alerts Allergy Allergy Status Severity Reaction(s) Onset Inactive Treating Comm ents Source Name Type Date Date Clinician Cephalex Propensi Active Rash Maryan in-Fd&C ty to 2-27 Seybjasmeet #2-Fd&C adverse 00:00: - Yellow reaction 00 Externa #10 s l Social History Social Habit Start Date Stop Date Quantity Comments Source History SDOH Maryan Schreiber ld - Alcohol Binge External Gender identity Maryan sharpe - External Sexual orientation Maryan Roberts - External History of tobacco Maryan Roberts - use External History SDOH Maryan Schreiber ld - Alcohol Frequency Externa l History SDOH Maryan Schreiber ld - Alcohol Std Drinks Expanded Duty Dental Assistant al Alcohol Comment 2022-12-02 2022-12-02 social Maryan sharpe - 00:00:00 00:00:00 External History of Social 2022-12-02 2022-12-02 Maryan Roberts - function 00:00:00 00:00:00 External Alcohol intake 2022-12-02 2022-12-02 Current drinker Josiah Roberts - 00:00:00 00:00:00 of alcohol External (finding) Sex Ass[birth year] At [birth year] Maryan sharpe - 00:00:00 00:00:00 External Smoking Status Start Date Stop Date Source Smokes tobacco daily 2022-12-02 00:00:00 Maryan Roberts - External Medications Ordered Filled Start Stop Current Ordering Indication Dosage Frequency Signature Comments Components Source Medication Medication Date Date Medication? Clinician (SIG) Name Name Trazodone 2022- No [id number] TAKE 1 Maryan HCl 50 MG 4-27 05-02 TABLET BY Seyb old oral Tablet 00:00: 00:00 MOUTH - 00 :00 EVERY DAY Externa AT NIGHT l Propranolol 2022-0 Yes [id number] TAKE 1 Maryan HCl 10 MG 3-24 TABLET BY Seybo ld oral Tablet 00:00: MOUTH 3 - 00 TIMES Externa DAILY l Fluoxetine 2022-0 Yes [id number] TAKE 1 K elsey HCl 20 MG 3-23 CAPSULE BY Seyb old oral 00:00: MOUTH - Capsule 00 EVERY DAY Externa l Trazodone 2022-0 Yes [id number] 50mg Take 1 K elsey HCl 50 MG 2-28 tablet (50 Seyb old oral Tablet 00:00: mg total) - 00 by mouth Externa nightly l Fluoxetine Yes [id number] 20mg Take 1 K elsey HCl 20 MG 2-28 capsule Seybold oral 00:00: (20 mg - Capsule 00 total) by Externa mouth l daily Propranolol Yes [id number] 10mg Take 1 Maryan HCl 10 MG 2-28 tablet (10 Seyb old oral Tablet 00:00: mg total) - 00 by mouth 3 Externa times l daily Immunizations Ordered Immunization Filled Immunization Date Status Commen ts Source Name Name diphtheria/pertussis 2023-01-30 Completed Gurinder rial , acel/tetanus adult 07:30:00 Herm blossom diphtheria/pertussis 2023-01-30 Completed Gurinder rial , acel/tetanus adult 07:30:00 Herm blossom Vital Signs Vital Name Observation Time Observation Value Comments Source Systolic blood 2023-02-03 21:33:00 126 mm[Hg] Maryan Marshybold - pressure External Diastolic blood 2023-02-03 21:33:00 83 mm[Hg] Josiah taylor Seybold - pressure External Heart rate 2023-02-03 21:33:00 77 /min Maryan S eybold - External Body temperature 2023-02-03 21:33:00 37.5 Torrie Mckayla ey Seybold - External Respiratory rate 2023-02-03 21:33:00 15 /min Mckayla cole Seybold - External Body height 2023-02-03 21:33:00 167.6 cm Maryan S kelseybold - External Body weight 2023-02-03 21:33:00 68.947 kg Maryan S kelseybold - External BMI 2023-02-03 21:33:00 24.53 kg/m2 Maryan S kelseybold - External Oxygen saturation in 2023-02-03 21:33:00 97 /min Mayran Roberts - Arterial blood by External Pulse oximetry Systolic blood 2022-12-02 18:33:00 120 mm[Hg] Maryan Marshybold - pressure External Diastolic blood 2022-12-02 18:33:00 78 mm[Hg] Josiah y Seybold - pressure External Heart rate 2022-12-02 18:33:00 87 /min Maryan S eybold - External Body temperature 2022-12-02 18:33:00 37 Torrie Mckayla ey Seybold - External Respiratory rate 2022-12-02 18:33:00 15 /min Mckayla cole Seybold - External Body height 2022-12-02 18:33:00 167.6 cm Maryan Diallo eybold - External Body weight 2022-12-02 18:33:00 66.225 kg Maryan Diallo eybold - External BMI 2022-12-02 18:33:00 23.57 kg/m2 Maryan Diallo eybold - External Temperature Oral (F) 2023-01-30 21:15:00 98.6 [facility] Heart Rate 2023-01-30 21:15:00 [facility] Systolic (mm Hg) 2023-01-30 21:15:00 Gurinder rial Ti Diastolic (mm Hg) 2023-01-30 21:15:00 [facility] Ti Height 2023-01-30 12:20:00 175.26 cm [facility] Height 2023-01-30 07:40:00 5 [ft_i] [facility] BMI Calculated 2023-01-30 07:40:00 [facility] Weight 2023-01-30 07:40:00 [facility] Temperature Oral (F) 2023-01-30 06:27:00 97.4 F [facility] Procedures This patient has no known procedures. Encounters Start End Encounter Admission Attending Care Care Encounter Source Date/Time Date/Time Type Type Clinicians Facility Department ID 2022-11-25 Outpatient STLMLC STLC [id number] Common 13:38:01 [id number] [facility] 2022-06-30 Outpatient Angy, Na STLMLC STLC [id number] Common 08:25:01 [id number] [facility] 2022-05-06 Outpatient Angy, Na STLMLC STLMLC [id number] Common 10:43:01 [facility] 2023-05-26 2023-05-26 Outpatient MARYAN RDZ [id number] Maryan 00:00:00 00:00:00 MACKENZIE agrawal 2023-05-11 2023-05-11 Outpatient MARYAN RDZ [id number] Maryan 00:00:00 00:00:00 MACKENZIE Seybol d 2023-03-10 2023-03-10 Outpatient HUNDLMARYAN MARYAN [id number] Maryan 08:30:00 08:30:00 MACKENZIE Seybol d 2023-03-06 2023-03-06 Outpatient PREZAS, MARYAN MARYAN [id number] Maryan 13:45:00 13:45:00 JENISE Seybol d 2023-03-05 2023-03-05 Outpatient PREZAS MARYAN ROSALES [id number] Maryan 09:30:00 09:30:00 JENISE Seybol d 2023-02-06 2023-02-06 Outpatient PREZAS, MARYAN ROSALES [id number] Maryan 00:00:00 00:00:00 JENISE Seybol d 2023-02-04 2023-02-04 Outpatient MARYAN MARYAN [id number] Maryan 10:45:00 10:45:00 Seybol d 2023-02-04 2023-02-04 Outpatient MARYAN ROSALES [id number] Maryan 10:40:00 10:40:00 Seybol d 2023-02-03 2023-02-03 Outpatient PREZAS, MARYAN ROSALES [id number] Maryan 16:30:00 16:30:00 JENISE Seybol d 2023-02-02 2023-02-02 Outpatient PREZAImani MARYAN MARYAN [id number] Maryan 00:00:00 00:00:00 JENISE Seybol d 2023-01-30 2023-01-30 Outpatient [facility] ADRIANNA [id number] [facility] 04:20:00 23:59:00 JULEE 2023-01-30 2023-01-30 Emergency [facility] [id number] [place] 06:59:00 23:23:[address] 2023-01-30 2023-01-30 Emergency [facility] [id number] Memoria 06:59:00 23:23:[address] 2023-01-30 2023-01-30 Outpatient [place] [facility] [id number] 01:59:00 18:23:00 Kaitlin 2023-01-30 2023-01-30 Emergency E [place], [facility] [id number] [facility] 01:09:00 18:23:00 KAITLIN 2023-01-29 2023-01-29 Outpatient KAJAL MARYAN ROSALES [id number] Maryan 00:00:00 00:00:00 MACKENZIE Seybol d 2023-01-07 2023-01-07 Outpatient KAJAL MARYAN ROSALES [id number] Maryan 15:00:00 15:00:00 MACKENZIE Seybol d 2022-12-30 2022-12-30 Outpatient MARYAN RDZ [id number] Maryan 13:00:00 13:00:00 MACKENZIE Seybol d 2022-12-26 2022-12-26 Outpatient MARYAN RDZ [id number] Maryan 00:00:00 00:00:00 MACKENZIE Seybol d 2022-12-25 2022-12-25 Outpatient MARYAN RDZ [id number] Maryan 00:00:00 00:00:00 MACKENZIE Seybol d 2022-12-04 2022-12-04 Outpatient KAJAL MARYAN ROSALES [id number] Maryan 00:00:00 00:00:00 MACKENZIE Seybol d 2022-12-02 2022-12-02 Outpatient KAJAL MARYAN ROSALES [id number] Maryan 13:00:00 13:00:00 MACKENZIE Seybol d Results Test Description Test Time Test Comments Results Result Comments Source CHEMISTRY 2023-01-30 16:58:00 Test Item Value Reference Range Interpretation Comme nts Lactic Acid Lvl (test code = Lactic Acid Lvl) 3.3 0.5-2.2 [id number] 16:58:00 Test Item Value Reference Range Interpretation Comments Lactic Acid Lvl (test code = Lactic 3.3 0.5-2.2 Acid Lvl) [id number] 11:06:52 Test Item Value Reference Range Interpretation Comments RADRPT (test code = EXAM: XR RIGHT KNEE 3 RADRPT) VIEWS DATE: 01/30/2023 2:38INDICATION: - pain, MCCCOMPARISON: None.TECHNIQUE: 3 views of the kneeFINDINGS: No acute fracture or malalignment is identified.No knee joint effusion is present. No soft tissue abnormality is identified.IMPRESSION: No acute abnormality.UT SECTION: [place] [address]-04-28 11:06:52 Test Item Value Reference Range Interpretation Comments RADRPT (test code = EXAM: XR RIGHT KNEE 3 RADRPT) VIEWS DATE: 01/30/2023 2:38INDICATION: - pain, MCCCOMPARISON: None.TECHNIQUE: 3 views of the kneeFINDINGS: No acute fracture or malalignment is identified.No knee joint effusion is present. No soft tissue abnormality is identified.IMPRESSION: No acute abnormality.UT SECTION: [place] [address]-04-28 11:05:58 Test Item Value Reference Range Interpretation Comments RADRPT (test code = EXAM: XR LEFT SHOULDER 3 RADRPT) VIEWS DATE: 01/30/2023 2:38INDICATION: - trauma, MCCCOMPARISON: None.TECHNIQUE: 3 views of the shoulderFINDINGS: No acute fracture or malalignment is identified.No soft tissue abnormality is identified.IMPRESSION: No acute abnormality.UT SECTION: [place] [id number] 11:05:58 Test Item Value Reference Range Interpretation Comments RADRPT (test code = EXAM: XR LEFT SHOULDER 3 RADRPT) VIEWS DATE: 01/30/2023 2:38INDICATION: - trauma, MCCCOMPARISON: None.TECHNIQUE: 3 views of the shoulderFINDINGS: No acute fracture or malalignment is identified.No soft tissue abnormality is identified.IMPRESSION: No acute abnormality.UT SECTION: [place] [id number] 11:05:36 Test Item Value Reference Range Interpretation Comments RADRPT (test code = EXAM: XR LEFT ANKLE 3 RADRPT) VIEWSDATE: 01/30/2023 2:38INDICATION: - trauma, MCCCOMPARISON: None.TECHNIQUE: AP, oblique and lateral radiographs of the ankleFINDINGS: No acute fracture or malalignment is identified. The ankle mortise is congruent.No soft tissue abnormality is identified.IMPRESSION: No acute abnormality.UT SECTION: [place] [id number] 11:05:36 Test Item Value Reference Range Interpretation Comments RADRPT (test code = EXAM: XR LEFT ANKLE 3 RADRPT) VIEWSDATE: 01/30/2023 2:38INDICATION: - trauma, MCCCOMPARISON: None.TECHNIQUE: AP, oblique and lateral radiographs of the ankleFINDINGS: No acute fracture or malalignment is identified. The ankle mortise is congruent.No soft tissue abnormality is identified.IMPRESSION: No acute abnormality.UT SECTION: [place] [id number] 11:05:12 Test Item Value Reference Range Interpretation Comments RADRPT (test code = EXAM: XR LEFT KNEE 3 RADRPT) VIEWS DATE: 01/30/2023 2:38INDICATION: - pain, MCCCOMPARISON: None.TECHNIQUE: 3 views of the kneeFINDINGS: No acute fracture or malalignment is identified.No knee joint effusion is present. No soft tissue abnormality is identified.IMPRESSION: No acute abnormality.UT SECTION: [place] [id number] 11:05:12 Test Item Value Reference Range Interpretation Comments RADRPT (test code = EXAM: XR LEFT KNEE 3 RADRPT) VIEWS DATE: 01/30/2023 2:38INDICATION: - pain, MCCCOMPARISON: None.TECHNIQUE: 3 views of the kneeFINDINGS: No acute fracture or malalignment is identified.No knee joint effusion is present. No soft tissue abnormality is identified.IMPRESSION: No acute abnormality.UT SECTION: [place] [id number] 10:11:18 Test Item Value Reference Range Interpretation Comments RADRPT (test code = EXAM: XR ABDOMEN 1 RADRPT) VIEWDATE: 01/30/2023 2:38 INDICATION: - STAT, tube placement ADDITIONAL INFORMATION: MCCCOMPARISON: Same day CT chest abdomen pelvis. TECHNIQUE: Limited AP view of the abdomen for tube placement assessment. Number of images: 1.FINDINGS: Enteric suction tube: A gastric suction tube tip and side port overlie the gastric fundus. Other tubes, lines and hardware: None.Other: Normal bowel gas pattern and otherwise unremarkable. Previously injected intravenous contrast is noted in the bilateral renal collecting systems.IMPRESSION: 1. Gastric suction tube tip and side port overlie the stomach.2. Normal intestinal gas pattern.UT SECTION: [place] [id number] 10:11:18 Test Item Value Reference Range Interpretation Comments RADRPT (test code = EXAM: XR ABDOMEN 1 RADRPT) VIEWDATE: 01/30/2023 2:38 INDICATION: - STAT, tube placement ADDITIONAL INFORMATION: MCCCOMPARISON: Same day CT chest abdomen pelvis. TECHNIQUE: Limited AP view of the abdomen for tube placement assessment. Number of images: 1.FINDINGS: Enteric suction tube: A gastric suction tube tip and side port overlie the gastric fundus. Other tubes, lines and hardware: None.Other: Normal bowel gas pattern and otherwise unremarkable. Previously injected intravenous contrast is noted in the bilateral renal collecting systems.IMPRESSION: 1. Gastric suction tube tip and side port overlie the stomach.2. Normal intestinal gas pattern.[facility]:04[facility] Test Item Value Reference Range Interpretation Comments RADRPT (test code = EXAM: XR PELVIS 1 RADRPT) VIEWDATE: 01/30/2023 1:29INDICATION: - acute pain due to trauma, MCCCOMPARISON: None.TECHNIQUE: Single view supine pelvis obtained with the patient on a backboard with pelvic binder placement. FINDINGS: No acute fracture or malalignment is identified. Pelvic binder is in place.No soft tissue abnormality is identified.IMPRESSION: No acute abnormality.[facility] 10:04:41 Test Item Value Reference Range Interpretation Comments RADRPT (test code = EXAM: XR PELVIS 1 RADRPT) VIEWDATE: 01/30/2023 1:29INDICATION: - acute pain due to trauma, MCCCOMPARISON: None.TECHNIQUE: Single view supine pelvis obtained with the patient on a backboard with pelvic binder placement. FINDINGS: No acute fracture or malalignment is identified. Pelvic binder is in place.No soft tissue abnormality is identified.IMPRESSION: No acute abnormality.[facility] 10:04:25 Test Item Value Reference Range Interpretation Comments RADRPT (test code = EXAM: XR PELVIS 1 RADRPT) VIEWDATE: 01/30/2023 1:29INDICATION: - acute pain due to trauma, MCCCOMPARISON: None.TECHNIQUE: Single view supine pelvis obtained with the patient on a backboard without pelvic binder.FINDINGS: No acute fracture or malalignment is identified.No soft tissue abnormality is identified.IMPRESSION: No acute abnormality.[facility] 10:04:25 Test Item Value Reference Range Interpretation Comments RADRPT (test code = EXAM: XR PELVIS 1 RADRPT) VIEWDATE: 01/30/2023 1:29INDICATION: - acute pain due to trauma, MCCCOMPARISON: None.TECHNIQUE: Single view supine pelvis obtained with the patient on a backboard without pelvic binder.FINDINGS: No acute fracture or malalignment is identified.No soft tissue abnormality is identified.IMPRESSION: No acute abnormality.UT SECTION: [place] [id number] 10:03:09 Test Item Value Reference Range Interpretation Comments RADRPT (test code = EXAM: XR CHEST 1 VIEWDATE: RADRPT) 01/30/2023 1:31 INDICATION: - acute pain due to trauma, MCCCOMPARISON: None.TECHNIQUE: Portable AP supine chest obtained with the patient on a backboard. Limited exam, the lower chest is excluded.FINDINGS:Lines, tubes and hardware: Endotracheal tube tip projects approximately 2.5 cm above the carmel.Lungs and pleura: Imaged lungs are clear. No pneumothorax is identified.Heart and mediastinum: The imaged mediastinum is unremarkable.Bones and soft tissues: No acute abnormality.IMPRESSION: Endotracheal tube now in appropriate position.[facility] 10:03:09 Test Item Value Reference Range Interpretation Comments RADRPT (test code = EXAM: XR CHEST 1 VIEWDATE: RADRPT) 01/30/2023 1:31 INDICATION: - acute pain due to trauma, MCCCOMPARISON: None.TECHNIQUE: Portable AP supine chest obtained with the patient on a backboard. Limited exam, the lower chest is excluded.FINDINGS:Lines, tubes and hardware: Endotracheal tube tip projects approximately 2.5 cm above the carmel.Lungs and pleura: Imaged lungs are clear. No pneumothorax is identified.Heart and mediastinum: The imaged mediastinum is unremarkable.Bones and soft tissues: No acute abnormality.IMPRESSION: Endotracheal tube now in appropriate position.UT SECTION: [place] [id number] 10:02:13 Test Item Value Reference Range Interpretation Comments RADRPT (test code = EXAM: XR CHEST 1 RADRPT) VIEWDATE: 01/30/2023 1:30 INDICATION: - acute pain due to trauma, MCCCOMPARISON: Same day chest radiograph at 0129 hours.TECHNIQUE: Portable AP supine chest obtained with the patient on a backboard. FINDINGS:Lines, tubes and hardware: The endotracheal tube has been retracted slightly, tip remains in the right mainstem bronchus.Lungs and pleura: The lungs are clear. The costophrenic sulci are sharp without effusion. No pneumothorax is identified.Heart and mediastinum: The heart size is normal. The mediastinal contours are normal. Bones and soft tissues: No acute abnormality.IMPRESSION: Persistent right mainstem bronchus, that has been corrected on subsequent radiographs.[facility] 10:02:13 Test Item Value Reference Range Interpretation Comments RADRPT (test code = EXAM: XR CHEST 1 RADRPT) VIEWDATE: 01/30/2023 1:30 INDICATION: - acute pain due to trauma, MCCCOMPARISON: Same day chest radiograph at 0129 hours.TECHNIQUE: Portable AP supine chest obtained with the patient on a backboard. FINDINGS:Lines, tubes and hardware: The endotracheal tube has been retracted slightly, tip remains in the right mainstem bronchus.Lungs and pleura: The lungs are clear. The costophrenic sulci are sharp without effusion. No pneumothorax is identified.Heart and mediastinum: The heart size is normal. The mediastinal contours are normal. Bones and soft tissues: No acute abnormality.IMPRESSION: Persistent right mainstem bronchus, that has been corrected on subsequent radiographs.[facility] 10:01:24 Test Item Value Reference Range Interpretation Comments RADRPT (test code EXAM: XR CHEST 1 VIEWDATE: = RADRPT) 01/30/2023 1:29 INDICATION: - acute pain due to trauma, MCCCOMPARISON: None.TECHNIQUE: Portable AP supine chest obtained with the patient on a backboard. FINDINGS:Lines, tubes and hardware: Right mainstem bronchus intubation.Lungs and pleura: The lungs are clear. The costophrenic sulci are sharp without effusion. No pneumothorax is identified.Heart and mediastinum: The heart size is normal. The mediastinal contours are normal. Bones and soft tissues: No acute abnormality.IMPRESSION: 1. Right mainstem bronchus intubation, which has been corrected on subsequent exams.2. No acute cardiopulmonary abnormality.UT SECTION: [facility] [id number] 10:01:24 Test Item Value Reference Range Interpretation Comments RADRPT (test code EXAM: XR CHEST 1 VIEWDATE: = RADRPT) 01/30/2023 1:29 INDICATION: - acute pain due to trauma, MCCCOMPARISON: None.TECHNIQUE: Portable AP supine chest obtained with the patient on a backboard. FINDINGS:Lines, tubes and hardware: Right mainstem bronchus intubation.Lungs and pleura: The lungs are clear. The costophrenic sulci are sharp without effusion. No pneumothorax is identified.Heart and mediastinum: The heart size is normal. The mediastinal contours are normal. Bones and soft tissues: No acute abnormality.IMPRESSION: 1. Right mainstem bronchus intubation, which has been corrected on subsequent exams.2. No acute cardiopulmonary abnormality.UT SECTION: [facility]2023-04-28 08:56:43 Test Item Value Reference Range Interpretation Comments U Amph Scr (test code Negative *NA*(01/30/23 = U Amph Scr) 3:56 AM) [id number] 08:56:43 Test Item Value Reference Range Interpretation Comments U Raysa Scr (test code Negative *NA*(01/30/23 = U Raysa Scr) 3:56 AM) [facility] [id number] 08:56:43 Test Item Value Reference Range Interpretation Comments U Benzodiaz Scr (test Positive *ABN*(01/30/23 code = U Benzodiaz Scr) 3:56 AM) [facility] [id number] 08:56:43 Test Item Value Reference Range Interpretation Comments U Cocaine Scr (test Negative *NA*(01/30/23 code = U Cocaine Scr) 3:56 AM) [facility] [id number] 08:56:43 Test Item Value Reference Range Interpretation Comments U Cannab Scr (test Positive *ABN*(01/30/23 code = U Cannab Scr) 3:56 AM) [facility] [id number] 08:56:43 Test Item Value Reference Range Interpretation Comments U Opiate Scr (test Negative *NA*(01/30/23 code = U Opiate Scr) 3:56 AM) [facility] [id number] 08:56:43 Test Item Value Reference Range Interpretation Comments U Phencyclidine Scr (test Negative code = U Phencyclidine *NA*(01/30/23 3:56 Scr) AM) [facility] [id number] 08:56:43 Test Item Value Reference Range Interpretation Comments UDS Note (test code = See Note (01/30/23 3:56 UDS Note) AM) [facility] [id number] 08:56:43 Test Item Value Reference Range Interpretation Comments UA Color (test code = Light Yellow UA Color) *NA*(01/30/23 3:56 AM) [facility] [id number] 08:56:43 Test Item Value Reference Range Interpretation Comments UA Turbidity (test code = Clear (01/30/23 3:56 UA Turbidity) AM) [facility] [id number] 08:56:43 Test Item Value Reference Range Interpretation Comments UA Spec Grav (test code = UA Spec 1.034 1 Grav) [facility] AND [id number] 08:56:43 Test Item Value Reference Range Interpretation Comments UA pH (test code = UA pH) 6.0 1 5.0-8.0 [facility] [id number] 08:56:43 Test Item Value Reference Range Interpretation Comments UA Protein (test code = UA Negative mg/dL Protein) [facility] [id number] 08:56:43 Test Item Value Reference Range Interpretation Comments UA Glucose (test code = UA Negative mg/dL Glucose) [facility] [id number] 08:56:43 Test Item Value Reference Range Interpretation Comments UA Ketones (test code = UA Negative mg/dL Ketones) [facility] [id number] 08:56:43 Test Item Value Reference Range Interpretation Comments UA Bili (test code = Negative *NA*(01/30/23 UA Bili) 3:56 AM) [facility] [id number] 08:56:43 Test Item Value Reference Range Interpretation Comments UA Blood (test code = Moderate *ABN*(01/30/23 UA Blood) 3:56 AM) [facility] AND [id number] 08:56:43 Test Item Value Reference Range Interpretation Comments UA Urobilinogen (test code = UA no gt 0.1-1.0 Urobilinogen) [facility] AND [id number] 08:56:43 Test Item Value Reference Range Interpretation Comments UA Nitrite (test code Negative (01/30/23 3:56 = UA Nitrite) AM) [facility] AND [id number] 08:56:43 Test Item Value Reference Range Interpretation Comments UA Leuk Est (test Negative (01/30/23 3:56 code = UA Leuk Est) AM) [facility] AND [id number] 08:56:43 Test Item Value Reference Range Interpretation Comments UA Ascorbic Acid (test Negative 3*NA*(01/30/23 code = UA Ascorbic 3:56 AM) Acid) [facility] AND [id number] 08:56:43 Test Item Value Reference Range Interpretation Comments UA WBC (test code = 1 See_Comment [Automa ceci message] The UA WBC) system which ge nerated this result transmit ceci reference range : <=5. The reference range was not used to interpr et this result as jaemel l/abnormal. [facility] AND [id number] 08:56:43 Test Item Value Reference Range Interpretation Comments UA Mucus (test code = UA Mucus) Few /LPF [facility] AND [id number] 08:56:43 Test Item Value Reference Range Interpretation Comments UA Sq Epi (test code = UA Sq Epi) None [facility]HcjiyfvUEEDVLZVL2415-66-96 08:56:43 Test Item Value Reference Range Interpretation Comments U Amph Scr (test code Negative *NA*(01/30/23 = U Amph Scr) 3:56 AM) [facility] CenterVrfrjjwQDWKPUJUA7725-91-90 08:56:43 Test Item Value Reference Range Interpretation Comments U Raysa Scr (test code Negative *NA*(01/30/23 = U Raysa Scr) 3:56 AM) [facility] CenterFnukvhcCYTSZYSFM1080-95-07 08:56:43 Test Item Value Reference Range Interpretation Comments U Benzodiaz Scr (test Positive *ABN*(01/30/23 code = U Benzodiaz Scr) 3:56 AM) [facility] CenterHoejbzmJGIGBAOUC8638-57-31 08:56:43 Test Item Value Reference Range Interpretation Comments U Cocaine Scr (test Negative *NA*(01/30/23 code = U Cocaine Scr) 3:56 AM) [facility]UK[facility]381[facility] 08:56:43 Test Item Value Reference Range Interpretation Comments U Cannab Scr (test Positive *ABN*(01/30/23 code = U Cannab Scr) 3:56 AM) [facility] CenterSeopxwpBMIGLOPAE6560-66-03 08:56:43 Test Item Value Reference Range Interpretation Comments U Opiate Scr (test Negative *NA*(01/30/23 code = U Opiate Scr) 3:56 AM) [facility] CenterNxxdrorIOSPGNYWW6922-20-03 08:56:43 Test Item Value Reference Range Interpretation Comments U Phencyclidine Scr (test Negative code = U Phencyclidine *NA*(01/30/23 3:56 Scr) AM) [facility] CenterDwbztzwBSPARTOXK7381-38-79 08:56:43 Test Item Value Reference Range Interpretation Comments UDS Note (test code = See Note (01/30/23 3:56 UDS Note) AM) [facility] [id number] 08:56:43 Test Item Value Reference Range Interpretation Comments UA Color (test code = Light Yellow UA Color) *NA*(01/30/23 3:56 AM) [facility] [id number] 08:56:43 Test Item Value Reference Range Interpretation Comments UA Turbidity (test code = Clear (01/30/23 3:56 UA Turbidity) AM) [facility] [id number] 08:56:43 Test Item Value Reference Range Interpretation Comments UA Spec Grav (test code = UA Spec 1.034 1 Grav) [facility] AND [id number] 08:56:43 Test Item Value Reference Range Interpretation Comments UA pH (test code = UA pH) 6.0 1 5.0-8.0 [facility] [id number] 08:56:43 Test Item Value Reference Range Interpretation Comments UA Protein (test code = UA Negative mg/dL Protein) [facility] AND [id number] 08:56:43 Test Item Value Reference Range Interpretation Comments UA Glucose (test code = UA Negative mg/dL Glucose) [facility] [id number] 08:56:43 Test Item Value Reference Range Interpretation Comments UA Ketones (test code = UA Negative mg/dL Ketones) [facility] AND [id number] 08:56:43 Test Item Value Reference Range Interpretation Comments UA Bili (test code = Negative *NA*(01/30/23 UA Bili) 3:56 AM) [facility] AND [id number] 08:56:43 Test Item Value Reference Range Interpretation Comments UA Blood (test code = Moderate *ABN*(01/30/23 UA Blood) 3:56 AM) [facility] AND [id number] 08:56:43 Test Item Value Reference Range Interpretation Comments UA Urobilinogen (test code = UA no gt 0.1-1.0 Urobilinogen) [facility] AND [id number] 08:56:43 Test Item Value Reference Range Interpretation Comments UA Nitrite (test code Negative (01/30/23 3:56 = UA Nitrite) AM) [facility] AND [id number] 08:56:43 Test Item Value Reference Range Interpretation Comments UA Leuk Est (test Negative (01/30/23 3:56 code = UA Leuk Est) AM) [facility] AND [id number] 08:56:43 Test Item Value Reference Range Interpretation Comments UA Ascorbic Acid (test Negative 3*NA*(01/30/23 code = UA Ascorbic 3:56 AM) Acid) [facility] AND [id number] 08:56:43 Test Item Value Reference Range Interpretation Comments UA WBC (test code = 1 See_Comment [Automa ceci message] The UA WBC) system which ge nerated this result transmit ceci reference range : <=5. The reference range was not used to interpr et this result as jameel l/abnormal. [facility] AND [id number] 08:56:43 Test Item Value Reference Range Interpretation Comments UA Mucus (test code = UA Mucus) Few /LPF [facility] AND [id number] 08:56:43 Test Item Value Reference Range Interpretation Comments UA Sq Epi (test code = UA Sq Epi) None Seen [facility] BANK [id number] 06:36:00 Test Item Value Reference Range Interpretation Comments ABO/Rh (test code = ABO/Rh) O POS [facility] [employer] [id number] 06:36:00 Test Item Value Reference Range Interpretation Comments Antibody Scrn (test Negative (01/30/23 1:36 code = Antibody Scrn) AM) [facility] [employer] [facility] [id number] 06:36:00 Test Item Value Reference Range Interpretation Comments ABO/Rh (test code = ABO/Rh) O POS [facility] [employer] [id number] 06:36:00 Test Item Value Reference Range Interpretation Comments Antibody Scrn (test Negative (01/30/23 1:36 code = Antibody Scrn) AM) [facility]sevahADYRAUSMJ5922-19-70 06:30:00 Test Item Value Reference Range Interpretation Comments Glucose Lvl (test code = Glucose Lvl) 83 70-99 [facility] HospitalCbdmwqpCUOWOUNMG0558-48-13 06:30:00 Test Item Value Reference Range Interpretation Comments BUN (test code = BUN) 13 7-22 [facility] HospitalVybmzmkXFYXRSTQD1897-79-34 06:30:00 Test Item Value Reference Range Interpretation Comments Creatinine Lvl (test code = Creatinine 1.08 0.50-1.40 Lvl) [facility] HospitalApvthkaOMJNAHOAY0391-91-00 06:30:00 Test Item Value Reference Range Interpretation Comments Sodium Lvl (test code = Sodium Lvl) 138 135-145 [facility] HospitalQbiqdpsFOSTOOJJT3638-82-00 06:30:00 Test Item Value Reference Range Interpretation Comments Chloride Lvl (test code = Chloride Lvl) 109 95-109 [facility] HospitalXqjygboAGAAWPWZA7973-25-76 06:30:00 Test Item Value Reference Range Interpretation Comments CO2 (test code = CO2) 20 24-32 [facility] HospitalGehcuwoBDXDMRBRJ8388-60-52 06:30:00 Test Item Value Reference Range Interpretation Comments Calcium Lvl (test code = Calcium Lvl) 8.6 8.5-10.5 [facility] HospitalDfhmtihDFZONSZUN0135-72-08 06:30:00 Test Item Value Reference Range Interpretation Comments eGFR (test code = eGFR) 98 [facility] CenterWeitpvqFSLPMQGRD1979-55-54 06:30:00 Test Item Value Reference Range Interpretation Comments Ethanol Lvl (test code = Ethanol Lvl) 214 [facility] CenterCasoyuoRPHNDNUEX1773-90-94 06:30:00 Test Item Value Reference Range Interpretation Comments Etoh (%) (test code = Etoh (%)) 0.214 [facility] CenterRfdijceMMHKOCKFP3393-21-82 06:30:00 Test Item Value Reference Range Interpretation Comments pH Andrew (test code = pH Andrew) 7.26 1 7.28-7.42 [facility] CenterHojogrgRYSJUCLYG3018-86-80 06:30:00 Test Item Value Reference Range Interpretation Comments pCO2 Andrew (test code = pCO2 Andrew) 49 38-52 [facility] CenterDqagnnmMPHNKVWFP6727-36-02 06:30:00 Test Item Value Reference Range Interpretation Comments pO2 Andrew (test code = pO2 Andrew) 76 20-49 [facility] CenterVxqkmixSVUUBMTHG4307-21-41 06:30:00 Test Item Value Reference Range Interpretation Comments HCO3 Andrew (test code = HCO3 Andrew) 22 22-26 [facility] CenterEuwwefkZDRUYFDHM9800-84-64 06:30:00 Test Item Value Reference Range Interpretation Comments BE Andrew (test code = BE Andrew) -5 -2-2 [facility] CenterRtgmesxFNIYJSOQF1616-83-82 06:30:00 Test Item Value Reference Range Interpretation Comments O2 Sat Andrew (calc) (test code = O2 Sat 92.7 40.0-70.0 Andrew (calc)) [facility] CenterMabptuuLNWEOOXCA5751-87-12 06:30:00 Test Item Value Reference Range Interpretation Comments Temp Andrew (test code = Temp Andrew) 37.0 [facility]GkfjhquCWMJWMAULJ0812-16-12 06:30:00 Test Item Value Reference Range Interpretation Comments WBC X 10x3 (test code = WBC X 10x3) 6.9 3.7-10.4 [facility]anoBhtcmelHFCGAZTQWZ4964-19-60 06:30:00 Test Item Value Reference Range Interpretation Comments RBC X 10x6 (test code = RBC X 10x6) 5.14 4.70-6.10 [facility]anoIskgazoJRSJIAIUSF1184-76-03 06:30:00 Test Item Value Reference Range Interpretation Comments Hgb (test code = Hgb) 14.0 14.0-18.0 [facility]anoSgdkisySXWCWLMLUE7443-19-19 06:30:00 Test Item Value Reference Range Interpretation Comments Hct (test code = Hct) 43.4 42.0-54.0 [facility]anoLaretylBYXTNKMAYE7207-65-82 06:30:00 Test Item Value Reference Range Interpretation Comments MCV (test code = MCV) 84.4 80.0-94.0 [place] 317833-04-28 06:30:00 Test Item Value Reference Range Interpretation Comments MCH (test code = MCH) 27.2 pg 27.0-31.0 [place] 317833-04-28 06:30:00 Test Item Value Reference Range Interpretation Comments MCHC (test code = MCHC) 32.3 32.0-36.0 [facility]anoStozyxvGOSLWWQIPU8445-89-77 06:30:00 Test Item Value Reference Range Interpretation Comments RDW (test code = RDW) 12.7 11.5-14.5 [place] [address]-04-28 06:30:00 Test Item Value Reference Range Interpretation Comments Platelet (test code = Platelet) 222 133-450 [facility]anoKjapdlnNDPJAHZTIE0287-48-97 06:30:00 Test Item Value Reference Range Interpretation Comments MPV (test code = MPV) 7.6 7.4-10.4 [place] 317833-04-28 06:30:00 Test Item Value Reference Range Interpretation Comments ACT (TEG) Rapid (test code = ACT (TEG) 113 s 86-118 Rapid) [facility]anoVhphhiyMDABPPMAMV1785-95-52 06:30:00 Test Item Value Reference Range Interpretation Comments Split Point Rapid (test code = Split 0.5 min Point Rapid) [facility]anoRrpougiQGOIHJGDQG8966-47-85 06:30:00 Test Item Value Reference Range Interpretation Comments R-time Rapid (test code = R-time 0.7 min 0.4-0.7 Rapid) [place] 317833-04-28 06:30:00 Test Item Value Reference Range Interpretation Comments K-time Rapid (test code = K-time 3.3 min 0.6-2.3 Rapid) [place] [address]-04-28 06:30:00 Test Item Value Reference Range Interpretation Comments Angle Rapid (test code = Angle 55 degrees 64-80 Rapid) [facility]anoQpbveqzWWUVMEGKNX7689-02-25 06:30:00 Test Item Value Reference Range Interpretation Comments Max Amplitude Rapid (test code = Max 49 mm 52-71 Amplitude Rapid) [place] 317833-04-28 06:30:00 Test Item Value Reference Range Interpretation Comments G-value Rapid (test code = G-value 4.8 5.0-11.6 Rapid) [place] [address]-04-28 06:30:00 Test Item Value Reference Range Interpretation Comments Estimated % Lysis Rapid 0.7 See_Comment [Au tomated message] The (test code = Estimated syste m which generated % Lysis Rapid) this result t ransmitted reference range : <=7.5. The reference r ameya was not used to int erpret this result as normal/abnormal . [place] 317833-04-28 06:30:00 Test Item Value Reference Range Interpretation Comments Segs (test code = Segs) 74.3 45.0-75.0 [place] 317833-04-28 06:30:00 Test Item Value Reference Range Interpretation Comments Lymphocytes (test code = Lymphocytes) 18.5 20.0-40.0 [place] [address]-04-28 06:30:00 Test Item Value Reference Range Interpretation Comments Monocytes (test code = Monocytes) 6.8 2.0-12.0 [place] [address]-04-28 06:30:00 Test Item Value Reference Range Interpretation Comments Eosinophils (test code = 0.2 See_Comment [A utomated message] The Eosinophils) system which ge nerated this result tra nsmitted reference range : <=4.0. The reference r ameya was not used to int erpret this result as normal/abnormal . [facility]anoMfsrnfkSBTHVOKCLI3089-85-60 06:30:00 Test Item Value Reference Range Interpretation Comments Basophils (test code = 0.2 See_Comment [Aut omated message] The Basophils) system which ge nerated this result tra nsmitted reference range : <=1.0. The reference r ameya was not used to int erpret this result as normal/abnormal . [place] 317833-04-28 06:30:00 Test Item Value Reference Range Interpretation Comments Neutrophils # (test code = Neutrophils 5.1 1.5-8.1 #) [place] 317833-04-28 06:30:00 Test Item Value Reference Range Interpretation Comments Lymphocytes # (test code = Lymphocytes 1.3 1.0-5.5 #) [place] 317833-04-28 06:30:00 Test Item Value Reference Range Interpretation Comments Monocytes # (test code 0.5 See_Comment [Aut omated message] The = Monocytes #) system which generated this result tra nsmitted reference range : <=0.8. The reference r ameya was not used to int erpret this result as normal/abnormal . [facility] CenterNkptuvaSBCBNGFRY3819-49-96 06:30:00 Test Item Value Reference Range Interpretation Comments Potassium Lvl (test code See Note 2(01/30/23 3.5-5.1 = Potassium Lvl) 1:30 AM) [facility] CenterGvlaxieOQZLGIBQC2830-46-04 06:30:00 Test Item Value Reference Range Interpretation Comments Glucose Lvl (test code = Glucose Lvl) 83 70-99 [facility] CenterCkfrebyFHWFRSXKT6582-23-66 06:30:00 Test Item Value Reference Range Interpretation Comments BUN (test code = BUN) 13 7-22 [facility] CenterWqnvjsjOQTHHUYED8243-06-21 06:30:00 Test Item Value Reference Range Interpretation Comments Creatinine Lvl (test code = Creatinine 1.08 0.50-1.40 Lvl) [facility] CenterBkfnehzRNOTMTOWG5433-05-95 06:30:00 Test Item Value Reference Range Interpretation Comments Sodium Lvl (test code = Sodium Lvl) 138 135-145 [facility] CenterUlunlhtAWEAOSQFD3094-39-27 06:30:00 Test Item Value Reference Range Interpretation Comments Chloride Lvl (test code = Chloride Lvl) 109 95-109 [facility] CenterGmpjrmxHBMWALJYW8598-84-78 06:30:00 Test Item Value Reference Range Interpretation Comments CO2 (test code = CO2) 20 24-32 [facility] CenterWfujzyxDJAIUNQBG4881-93-97 06:30:00 Test Item Value Reference Range Interpretation Comments Calcium Lvl (test code = Calcium Lvl) 8.6 8.5-10.5 [facility] CenterHksrbzgFZQUTZNTJ8330-37-54 06:30:00 Test Item Value Reference Range Interpretation Comments eGFR (test code = eGFR) 98 [facility] CenterXsmjkzrDELHUCHPW0522-51-51 06:30:00 Test Item Value Reference Range Interpretation Comments Ethanol Lvl (test code = Ethanol Lvl) 214 [facility] CenterRoezcydQRHKVGISS2558-08-12 06:30:00 Test Item Value Reference Range Interpretation Comments Etoh (%) (test code = Etoh (%)) 0.214 [facility] CenterUhtnldeCNMOVLKWK1922-39-49 06:30:00 Test Item Value Reference Range Interpretation Comments pH Andrew (test code = pH Andrew) 7.26 1 7.28-7.42 [facility] CenterCefhwdoXKEZVJOFV6377-54-77 06:30:00 Test Item Value Reference Range Interpretation Comments pCO2 Andrew (test code = pCO2 Andrew) 49 38-52 [facility] CenterOuvxawbUWVGWDHWC2250-00-54 06:30:00 Test Item Value Reference Range Interpretation Comments pO2 Andrew (test code = pO2 Andrew) 76 20-49 [facility] CenterEnbsbpgGHTNKWMFO2797-12-71 06:30:00 Test Item Value Reference Range Interpretation Comments HCO3 Andrew (test code = HCO3 Andrew) 22 22-26 [facility] CenterZfolhoiRMZSVREVP3799-91-76 06:30:00 Test Item Value Reference Range Interpretation Comments BE Andrew (test code = BE Andrew) -5 -2-2 [facility] CenterXivtubeHHHXRACYQ5595-14-66 06:30:00 Test Item Value Reference Range Interpretation Comments O2 Sat Andrew (calc) (test code = O2 Sat 92.7 40.0-70.0 Andrew (calc)) [facility] CenterVucfqllJBHWDRGNK7046-59-24 06:30:00 Test Item Value Reference Range Interpretation Comments Temp Anderw (test code = Temp Andrew) 37.0 [facility]anoXlsesiuNDNGIILZOF5662-72-67 06:30:00 Test Item Value Reference Range Interpretation Comments WBC X 10x3 (test code = WBC X 10x3) 6.9 3.7-10.4 [facility]anoChdzakyGEWUBMDPEF8095-84-75 06:30:00 Test Item Value Reference Range Interpretation Comments RBC X 10x6 (test code = RBC X 10x6) 5.14 4.70-6.10 [facility]anoAzeykofRLYFYMJWIR3402-81-77 06:30:00 Test Item Value Reference Range Interpretation Comments Hgb (test code = Hgb) 14.0 14.0-18.0 [facility]anoXvqgoldCOAATMPSBG3971-02-06 06:30:00 Test Item Value Reference Range Interpretation Comments Hct (test code = Hct) 43.4 42.0-54.0 [facility]anoLtrgnqhUZADNAPGDA6589-10-74 06:30:00 Test Item Value Reference Range Interpretation Comments MCV (test code = MCV) 84.4 80.0-94.0 [facility]anoRttyzzgZHDTXPDBEB1053-54-09 06:30:00 Test Item Value Reference Range Interpretation Comments MCH (test code = MCH) 27.2 pg 27.0-31.0 [facility]anoEepjxviEIFKHYMNVR9597-09-41 06:30:00 Test Item Value Reference Range Interpretation Comments MCHC (test code = MCHC) 32.3 32.0-36.0 [facility]anoFmiczfvFVXPZICERV8302-17-61 06:30:00 Test Item Value Reference Range Interpretation Comments RDW (test code = RDW) 12.7 11.5-14.5 [facility]anoNggixvaJKSREPHSEW2803-20-13 06:30:00 Test Item Value Reference Range Interpretation Comments Platelet (test code = Platelet) 222 133-450 [facility]anoHnkmgalBSBLIOGVAE7717-17-64 06:30:00 Test Item Value Reference Range Interpretation Comments MPV (test code = MPV) 7.6 7.4-10.4 [place] 317833-04-28 06:30:00 Test Item Value Reference Range Interpretation Comments ACT (TEG) Rapid (test code = ACT (TEG) 113 s 86-118 Rapid) [facility]anoOagsireFFJXRUCBJR8270-28-06 06:30:00 Test Item Value Reference Range Interpretation Comments Split Point Rapid (test code = Split 0.5 min Point Rapid) [facility]anoGiqvbkdSVBCTFBIFJ9339-99-84 06:30:00 Test Item Value Reference Range Interpretation Comments R-time Rapid (test code = R-time 0.7 min 0.4-0.7 Rapid) [facility]anoHqpzdgmYKXQMORMBZ3438-46-20 06:30:00 Test Item Value Reference Range Interpretation Comments K-time Rapid (test code = K-time 3.3 min 0.6-2.3 Rapid) [facility]anoFrrxkgfMKMGETZKYT7517-07-79 06:30:00 Test Item Value Reference Range Interpretation Comments Angle Rapid (test code = Angle 55 degrees 64-80 Rapid) [facility]anoWlavutfPOMXDXIQTG9856-98-95 06:30:00 Test Item Value Reference Range Interpretation Comments Max Amplitude Rapid (test code = Max 49 mm 52-71 Amplitude Rapid) [facility]anoUtwlzpwTYQVFZMNZN5585-74-07 06:30:00 Test Item Value Reference Range Interpretation Comments G-value Rapid (test code = G-value 4.8 5.0-11.6 Rapid) [facility]anoHbqnyymZZDBABSTXY0802-05-84 06:30:00 Test Item Value Reference Range Interpretation Comments Estimated % Lysis Rapid 0.7 See_Comment [Au tomated message] The (test code = Estimated syste m which generated % Lysis Rapid) this result t ransmitted reference range : <=7.5. The reference r ameya was not used to int erpret this result as normal/abnormal . [facility]anoDrdmwevKQNRULZCLG4253-69-66 06:30:00 Test Item Value Reference Range Interpretation Comments Segs (test code = Segs) 74.3 45.0-75.0 [place] 317833-04-28 06:30:00 Test Item Value Reference Range Interpretation Comments Lymphocytes (test code = Lymphocytes) 18.5 20.0-40.0 [place] 317833-04-28 06:30:00 Test Item Value Reference Range Interpretation Comments Monocytes (test code = Monocytes) 6.8 2.0-12.0 [place] 317833-04-28 06:30:00 Test Item Value Reference Range Interpretation Comments Eosinophils (test code = 0.2 See_Comment [A utomated message] The Eosinophils) system which ge nerated this result tra nsmitted reference range : <=4.0. The reference r ameya was not used to int erpret this result as normal/abnormal . [facility]anoQykgjreVTSYJPXUUN0045-98-38 06:30:00 Test Item Value Reference Range Interpretation Comments Basophils (test code = 0.2 See_Comment [Aut omated message] The Basophils) system which ge nerated this result tra nsmitted reference range : <=1.0. The reference r ameya was not used to int erpret this result as normal/abnormal . [facility]anoLszbgqvPSCEGCFNSO5237-77-38 06:30:00 Test Item Value Reference Range Interpretation Comments Neutrophils # (test code = Neutrophils 5.1 1.5-8.1 #) [place] 317833-04-28 06:30:00 Test Item Value Reference Range Interpretation Comments Lymphocytes # (test code = Lymphocytes 1.3 1.0-5.5 #) [facility]anoIpqgrsrZDRGUIVVIB7804-65-80 06:30:00 Test Item Value Reference Range Interpretation Comments Monocytes # (test code 0.5 See_Comment [Aut omated message] The = Monocytes #) system which generated this result tra nsmitted reference range : <=0.8. The reference r ameya was not used to int erpret this result as normal/abnormal . [facility]higin[facility]VILEENEOB4003[facility] 06:30:00 Test Item Value Reference Range Interpretation Comments Potassium Lvl (test code See Note 2(01/30/23 3.5-5.1 = Potassium Lvl) 1:30 AM) [facility] Notes Date/Time Note Provider Source 2023-01-30 EXAM: XR LEFT SHOULDER 3 VIEWS [facility] 02:38:00-00:00 DATE: 01/30/2023 2:38 Center INDICATION: - trauma, [facility] COMPARISON: None. TECHNIQUE: 3 views of the shoulder FINDINGS: No acute fracture or malalignment is i dentified. No soft tissue abnormality is identified. IMPRESSION: No acute abnormality. [place] SECTION: ER 2023-01-30 EXAM: XR LEFT KNEE [address] [facility] 02:38:00-00:00 DATE: 01/30/2023 2:38 Center INDICATION: - pain, [facility] COMPARISON: None. TECHNIQUE: 3 views of the knee FINDINGS: No acute fracture or malalignment is i dentified. No knee joint effusion is present. No soft tissue abnormality is identified. IMPRESSION: No acute abnormality. [place] SECTION: ER 2023-01-30 EXAM: XR RIGHT KNEE 3 VIEWS [facility] 02:38:00-00:00 DATE: 01/30/2023 2:38 Center INDICATION: - pain, [facility] COMPARISON: None. TECHNIQUE: 3 views of the knee FINDINGS: No acute fracture or malalignment is i dentified. No knee joint effusion is present. No soft tissue abnormality is identified. IMPRESSION: No acute abnormality. [place] SECTION: ER 2023-01-30 EXAM: XR LEFT ANKLE 3 VIEWS [facility] 02:38:00-00:00 DATE: 01/30/2023 2:38 Center INDICATION: - trauma, [facility] COMPARISON: None. TECHNIQUE: AP, oblique and lateral radiographs o f the ankle FINDINGS: No acute fracture or malalignment is identified. The ankle mortise is congruent. No soft tissue abnormality is identified. IMPRESSION: No acute abnormality. [place] SECTION: ER 2023-01-30 EXAM: XR ABDOMEN 1 VIEW [facility] 02:38:00-00:00 DATE: 01/30/2023 2:38 Center INDICATION: - STAT, tube placement ADDITIONAL INFORMATION: [facility] [place] COMPARISON: Same day CT chest abdomen pelvis. TECHNIQUE: Limited AP view o f the abdomen for tube placement assessment. Number of images: 1. FINDINGS: Enteric suction tube: A fabrizio cindy suction tube tip and side port overlie the gastric fundus. Other tubes, lines and hardware: None. Other: Normal bowel gas noreen debbie and otherwise unremarkable. Previously injected intravenous contrast is noted in the bilateral renal collecting systems. IMPRESSION: 1. Gastric suction tube tip and side port overli e the stomach. 2. Normal intestinal gas pattern. UT SECTION: ER 2023-01-30 EXAM: CT BRAIN WITHOUT CONTRAST. [facility] 01:44:20-00:00 DATE: 01/30/2023. Center INDICATION: ' - acute pain due to trauma'. ADDITIONAL INFORMATION: None. COMPARISON: None.. TECHNIQUE: Axial CT images o f the brain were obtained. Sagittal and coronal reformats. IV contrast: None DLP: Refer to CT protocol form FINDINGS: There is no edema, hemorrhag e, mass lesion or other acute intracranial abnormality. Small left anterior frontal subgaleal hematoma. The skull base, calvarium, and included facial b ones are unremarkable. Incidentally noted there is a cavum septum pellu cidum, as anatomical variant. Orbital contents are negative for acute patholog y. Small air-fluid level in the left maxillary sinus. The remaining paranasal sinuses are grossly clear. Partially visualized endotracheal tube. IMPRESSION: 1. No acute intracranial abnormality. 2. Small left anterior front al scalp hematoma without underlying calvarial fracture. UT SECTION: Neuro 2023-01-30 EXAM: CT CERVICAL SPINE WITHOUT CONTRAST [facility] 01:44:20-00:00 DATE: 01/30/2023 1:44 Center INDICATION: - acute pain due to trauma, [facility]. COMPARISON: None TECHNIQUE: Volumetric CT of the cervical spine is acquired without contrast. Axial, coronal and sagittal images are provided. IV contrast: None. DLP: Refer to CT protocol form UT SECTION: ER FINDINGS: The spine is imaged from the skull base to the l evel of T3. Rn Picu: An oral endotracheal tube is present. Bones: No acute fracture or malalignment is identified. Vertebral body heights and disc heights are preserved throughout. Incomplete fusion of the spinous process of T1. Soft tissues: No acute soft tissue abnormality is identified. Right apical bullae are present. IMPRESSION: No acute fracture or malalignment of the cervica l spine. 2023-01-30 EXAM: CT CHEST WITH CONTRAST [facility] 01:44:20-00:00 EXAM: CT ABDOMEN AND PELVIS WITH CONTRAST Center DATE: 01/30/2023 1:44 INDICATION: - acute pain due to trauma, [facility] COMPARISON: None TECHNIQUE: Volumetric CT of the chest, abdomen and pelvis is acquired following intravenous administration of contrast. Axial, coronal and sagittal images are provided. IV contrast: Refer to MAR/technologist documenta tion Oral contrast: None. DLP: Refer to CT protocol form DE SECTION: ER FINDINGS: Rn Picu: Noncontributory. Lines and tubes: Endotrachea l tube in appropriate position with the tip approximately 2 cm above the carmel. Lower Neck: Supraclavicular soft tissues are wit hin normal limits. Thoracic Aorta and Mediastin um: No mediastinal hematoma or thoracic aortic injury. Normal heart and pericardium. Lungs, Pleura, Diaphragm: No pulmonary contusions. Bilateral lower lobe dependent consolidative opacities, likely atelectasis. Lungs are otherwise clear. Right apical bullae. No pleural effusion or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
[2023-06-01] MEDS ORDERED: IBUPROFEN 400 MG TAB ONE (14:13)
--- NOTE | 2023-06-01 15:11 | RAD REPORT ---
EXAM DESCRIPTION: RAD - Wrist Right 3 View - 06/01/2023 3:03 pm CLINICAL HISTORY: PAIN Pain COMPARISON: No comparisons FINDINGS: No fracture or dislocation seen. No foreign body or other soft tissue abnormality. IMPRESSION: Negative examination.
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
[2023-06-01] MEDS ORDERED: TDAP (DIPHTH,PERTUSS(ACELL),TET VAC) 0.5 ML VIAL IMVAC ONE (15:46)
[2023-06-01 16:09] VITALS: TEMP 98.1
[2023-06-01 16:10] VITALS: BP 118/88; O2SAT 99
== END 2023-06-01 16:05 | disposition home or self-care (01) ==
LOC: ER 12:24
DX: M25.531 Pain in right wrist (principal); M25.562 Pain in left knee; Z23 Encounter for immunization; Z88.1 Allergy status to other antibiotic agents
CPT/HCPCS: 90471; 99284